=== PATIENT | male | born 1985 | race Caucasian/White ===

== ENCOUNTER 2020-02-03 22:23 | Emergency (ER) | payer OTHER, SELFPAY ==
--- NOTE | ~2020-02-03 | CT_ITS ---
EXAMINATION: CT abdomen pelvis wo con EXAM DATE: 02/03/2020 23:27 INDICATION: Left flank pain with nausea and vomiting. TECHNIQUE: Spiral CT of the abdomen and pelvis was performed without contrast. Axial, coronal and sag ittal images were reviewed. The dose-length product (DLP) for this examination was 652.20 mGy-cm. T he exposure was tailored according to patient size (auto mA exposure control), and iterative reconstr uction (ASIR) was used as additional dose reduction technique. There is no prior study for compariso n. FINDINGS: There is a 4 mm stone in the distal aspect of the left ureter, 2 cm from the ureterovesicul ar junction, with mild perinephric and periureteral fat stranding, mild hydroureteronephrosis. No oth er genitourinary calcifications. Small bilateral inguinal fat-containing hernias. The prostate is un remarkable. There is an exophytic left renal lesion measuring 2.5 cm, consistent with cysts. Tiny umb ilical fat-containing hernia. The bladder is unremarkable. The liver, spleen, adrenal glands and pa ncreas are unremarkable. Gallbladder is unremarkable. No biliary obstruction. There is no retroper itoneal or pelvic lymphadenopathy. The appendix is normal. The stomach and small bowel are unremarkable. There is expected amount of c olonic stool. No free intraperitoneal gas. The heart is normal in size. There are no pericardial or pleural effusions. The lung bases are unremarkable. The bones are unremarkable. IMPRESSION: 1. Left distal ureteral 4 mm stone, mild obstructive nephropathy. 2. Small fat-containing hernias. Reviewed, dictated and finalized at location G.
--- NOTE | ~2020-02-03 | XR_ITS ---
EXAMINATION: XR abdomen/kub 1V EXAM DATE: 02/03/2020 23:22 INDICATION: Left distal ureteral stone. TECHNIQUE: Frontal projection of the upper abdomen, frontal projection lower abdomen/pelvis for inter pretation. There is no prior study for comparison. FINDINGS: The left distal ureteral 4 mm stone is identified, indicated. No other suspicious calcifica tions. There is also a linear 8 x 20 mm calcific density projecting over the sacrum, which is a calci fication in the patent urachus. Nonobstructive bowel gas pattern. There are no osseous abnormalities identified. There is no organomegaly. IMPRESSION: Left distal ureteral 4 mm stone identified. Reviewed, dictated and finalized at location G.
[2020-02-03 22:28] VITALS: BP 147/91; PULSE 86; RESP 16; TEMP 36.4; O2SAT 100
--- NOTE | 2020-02-03 23:00 | ED.BACK ---
HPI - Back Pain/Injury General Chief Complaint: Abdominal Pain Stated Complaint: flank pain Time Seen by Provider: 02/03/20 22:30 Source: patient Mode of arrival: ambulatory Limitations: no limitations History of Present Illness HPI Narrative: This patient is a 34 year old male who presents for evaluation of left lower back pain. He has been having intermittent pain since last weekend. He has been taking aleve for his pain and his last dose was yesterday. Today he states his pain was so severe that he had an episode of nausea and vomiting. He states when he has severe pain , his pain radiates to left lower abdomen. He denies fever or chills. He reports his urine was pink tinged . This pain feels similar to his kidney stone from 2 months ago. Related Data Allergies Allergy/AdvReac Type Severity Reaction Status Date / Time No Known Allergies Allergy Unverified 10/22/18 04:26 Review of Systems Review of Systems: All systems reviewed & are unremarkable except as noted in HPI and below PMFSH Past Medical History Medical History (Updated 02/04/20 @ 00:17 by Mila Berg MD) Kidney stone Family History Family History (Updated 07/17/16 @ 15:19 by DOCTOR UNKNOWN) Mother Family history of type 2 diabetes mellitus Hypertension Grandparent Diabetes mellitus Hypertension Family history of cardiovascular disease Social History Social History (Updated 02/03/20 @ 23:03 by Mila Berg MD) Smoking packs per day: 0.5 Smoking cigarettes per day: 10.0 Smoking status: Current every day smoker Alcohol intake: current Gender identity (if verbalized by the patient): Male Exam Const: General: no acute distress and alert Orientation/consciousness: patient oriented x3 Eyes: EOM: EOMs intact bilaterally Resp: Effort & Inspection: normal respiratory effort and no retractions Auscultation: clear to auscultation bilaterally GI: GI Palp: Yes Soft to palpation, No Tenderness to palpation present (GI), No Guarding due to palpation present (GI), No Rigid due to palpation and No Hernia present : General: Yes no CVA tenderness Back/Spine/Pelvis: Back: no CVA tenderness Skin: General skin exam: normal color Rashes: no rashes Neuro: General: patient oriented x3 and moves all extremities Course Reevaluation(s) Reevaluation #1: I Discussed with patient CT results and discharge plan. He states his pain is better. Date: 02/04/20 Time: 00:12 Vital Signs Vital signs: Vital Signs Temperature 97.6 F 02/03/20 22:28 Pulse Rate 86 02/03/20 22:28 Respiratory Rate 16 02/03/20 22:28 Blood Pressure 147/91 H 02/03/20 22:28 Pulse Oximetry 100 02/03/20 22:28 Temperature 98.2 F 02/04/20 01:08 Pulse Rate 78 02/04/20 01:08 Respiratory Rate 16 02/04/20 01:08 Blood Pressure 132/82 02/04/20 01:08 Pulse Oximetry 98 02/04/20 01:08 MDM - Back Pain/Injury Lab Data Attestation: I reviewed the patient's lab results. Result diagrams: 02/03/20 23:37 02/03/20 23:37 Labs: Lab Results 02/03/20 02/03/20 02/03/20 Range/Units 23:37 23:37 23:37 WBC 7.9 (4.5-10.0) K/mm3 RBC 4.35 L (4.6-6.20) M/mm3 Hgb 14.1 (14.0-18.0) g/dL Hct 41.0 L (42.0-52.0) % MCV 94.3 (80-100) fl MCH 32.4 (26-34) pg MCHC 34.4 (32-36) g/dl RDW 12.9 (11.5-14.5) % Plt Count 211 (150-375) k/mm3 MPV 10.5 H (7.4-10.4) fl Immature Gran % (Auto) 0.1 (0-0.5) % Neut % (Auto) 48.7 (45.5-73.1) % Lymph % (Auto) 40.3 (18.3-44.2) % Geary % (Auto) 7.8 (2.6-8.5) % Eos % (Auto) 2.3 (0-4.4) % Baso % (Auto) 0.8 (0.2-1.2) % Lymph # (Auto) 3.18 (0.9-3.2) K/mm3 Geary # (Auto) 0.6 (0.1-0.6) K/mm3 Eos # (Auto) 0.2 (0-0.3) K/mm3 Baso # (Auto) 0.1 (0.0-0.1) K/mm3 Abs Immat Gran (auto) 0.01 (0.00-0.031) K/mm3 Absolute Neuts (auto) 3.9 (1.3-6.7) K/mm3 Absolute Nucleated RBC 0.0 (0
[2020-02-03] MEDS: LACTATED RINGERS 1,000 ML 999 ML IV CONT (23:17)
[2020-02-03] MEDS: ONDANSETRON INJ 4 MG/2 ML VIAL IV PUSH (23:17)
[2020-02-03] MEDS: TAMSULOSIN HCL 0.4 MG CAPSULE PO (23:41)
[2020-02-03 23:47] LABS: Basophils Absolute Auto 0.1 K/mm3 (0.0-0.1); Basophils Percent Auto 0.8 % (0.2-1.2); Eosinophils Absolute Auto 0.2 K/mm3 (0-0.3); Eosinophils Percent Auto 2.3 % (0-4.4); Hemoglobin 14.1 g/dL (14.0-18.0); Immature Granulocyte Absolute 0.01 K/mm3 (0.00-0.031); Immature Granulocyte Percent A 0.1 % (0-0.5); Lymphocytes Absolute Auto 3.18 K/mm3 (0.9-3.2); Lymphocytes Percent Auto 40.3 % (18.3-44.2); Mean Corpuscular HGB Conc 34.4 g/dl (32-36); Mean Corpuscular Hemoglobin 32.4 pg (26-34); Mean Corpuscular Volume 94.3 fl (80-100); Mean Platelet Volume 10.5 fl (7.4-10.4); Monocytes Absolute Auto 0.6 K/mm3 (0.1-0.6); Monocytes Percent Auto 7.8 % (2.6-8.5); Neutrophils Absolute Auto 3.9 K/mm3 (1.3-6.7); Neutrophils Percent Auto 48.7 % (45.5-73.1); Platelet Count Result 211 k/mm3 (150-375); Red Blood Count 4.35 M/mm3 (4.6-6.20); Red Cell Distribution Width 12.9 % (11.5-14.5); White Blood Count 7.9 K/mm3 (4.5-10.0)
[2020-02-03 23:54] LABS: Add Urine Microscopic? YES; Appearance Urine Clear (Clear); Bilirubin Urine Negative (Negative); Blood Urine 2+ (Negative); Color Urine Yellow (Yellow); Glucose Urine UA Negative (Negative); Ketones Urine Negative (Negative); Leukocyte Esterase Ur Negative LEU/UL (Negative); Mucus Urine Few /lpf; Nitrate Urine Negative (Negative); Protein Urine Negative (Negative); RBC Urine 21-50 /hpf (0-2); Specific Grav Ur 1.019 (1.001-1.035); Squamous Epithelial Cell Urine Few /hpf (Few); Urobilinogen Urine Negative mg/dL (<2.0)
[2020-02-03 23:56] LABS: Alanine Aminotransferase 31 U/L (4-50); Alkaline Phosphatase 76 U/L (38-126); Anion Gap 8 mmol/L (8-16); Aspartate Amino Transferase 31 U/L (17-59); Bilirubin,Total 0.5 mg/dL (0.2-1.3); Blood Urea Nitrogen 17 mg/dL (9-20); Calcium 9.6 mg/dL (8.4-10.2); Carbon Dioxide 26 mmol/L (22-30); Chloride 103 mmol/L (98-107); Estimated Glomerular Filt Rate > 60; Glucose 94 mg/dL (75-110); Lipase 47 U/L (23-300); Potassium 3.8 mmol/L (3.4-5.0); Sodium 137 mmol/L (137-145)
[2020-02-04 01:07] VITALS: BP 136/85; PULSE 78; RESP 18; TEMP 36.8; O2SAT 98
[2020-02-04 01:08] VITALS: BP 132/82; PULSE 78; RESP 16; TEMP 36.8; O2SAT 98
[2020-02-04] MEDS: KETOROLAC 30 MG/ML VIAL (*BKC) IV PUSH (01:10)
== END 2020-02-04 01:09 | disposition home or self-care (01) ==
PROVIDERS: Emergency Provider General Practice
DX: N13.8 Other obstructive and reflux uropathy (principal); N20.1 Calculus of ureter; Z87.442 Personal history of urinary calculi; F17.210 Nicotine dependence, cigarettes, uncomplicated; K40.90 Unilateral inguinal hernia, without obstruction or gangrene, not specified as recurrent
CPT/HCPCS: 36415; 74018; 74176; 80053; 81001; 83690; 85025; 87086; 96361; 96365; 96374; 96375; 99284; A9270; J0131; J1885; J2405; J7120

== ENCOUNTER 2020-10-03 03:01 | Emergency (ER) | payer OTHER, SELFPAY ==
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
[2020-10-03 03:07] VITALS: BP 152/92; PULSE 84; RESP 24; TEMP 36.6
--- NOTE | 2020-10-03 03:19 | PC.NURSE ---
EDMD presented to bedside.
--- NOTE | 2020-10-03 03:24 | PC.NURSE ---
Pt to radiology via cart.
--- NOTE | 2020-10-03 03:34 | PC.NURSE ---
Pt returned from radiology.
[2020-10-03] MEDS: KETOROLAC 30 MG/ML VIAL (*BKC) 60 MG IM (03:45)
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
[2020-10-03 04:13] VITALS: BP 142/77; PULSE 69; RESP 19; TEMP 36.5; O2SAT 97
--- NOTE | 2020-10-03 04:13 | PC.NURSE ---
EDMD presented to bedside to update pt on poc. All questions and concerns addressed.
--- NOTE | 2020-10-03 04:21 | PC.NURSE ---
Pt states pain remains a 7/10 but is able to ambulate without difficulty.
[2020-10-03 04:22] VITALS: BP 142/77; PULSE 69; RESP 19; TEMP 36.5; O2SAT 97
== END 2020-10-03 04:24 | disposition home or self-care (01) ==
PROVIDERS: Emergency Provider Emergency Medicine
DX: S20.211A Contusion of right front wall of thorax, initial encounter (principal); R07.89 Other chest pain; Z87.442 Personal history of urinary calculi; F17.210 Nicotine dependence, cigarettes, uncomplicated; V18.4XXA Pedal cycle driver injured in noncollision transport accident in traffic accident, initial encounter; Y93.55 Activity, bike riding
CPT/HCPCS: 71046; 71100; 96372; 99283; J1885

== ENCOUNTER 2020-11-27 03:38 | Emergency (ER) | payer OTHER, SELFPAY ==
--- NOTE | ~2020-11-27 | CT_ITS ---
EXAMINATION: CT orbit BI w con DATE: 11/27/2020 05:07 INDICATION: Right eye pain with swelling and drainage. Possible foreign body. TECHNIQUE: Computed tomography (CT) of the orbits was performed with 75 cc Omnipaque 350 intravenous contrast. The dose-length product was 183.33 mGy-cm. Automated exposure control and iterative reconst ruction technique were employed. COMPARISON: None FINDINGS: No radiopaque foreign bodies are identified. Orbits are symmetric. No post septal abnormali ties. No abnormal fluid collections or abscess. There are mucous retention cysts of the maxillary sin uses with mucosal thickening of the left maxillary and ethmoid sinuses. Mastoids are pneumatized. No abnormality of the visualized intracranial content. IMPRESSION: 1. No significant abnormality of the orbits. No foreign bodies, masses, fluid collections or abnormal enhancement. Reviewed, dictated and finalized at location A. IMPRESSION: 1. No significant abnormality of the orbits. No foreign bodies, masses, fluid c ollections or abnormal enhancement.
[2020-11-27 03:43] VITALS: BP 141/84; PULSE 95; RESP 18; TEMP 36.6; O2SAT 100
--- NOTE | 2020-11-27 04:25 | ED.EYEPROB ---
HPI - Eye Problem General Chief complaint: Eye Problems <Aristeo Coombs MD - Last Filed: 11/27/20 06:38> Stated complaint: R eye injury <Aristeo Coombs MD - Last Filed: 11/27/20 06:38> Time Seen by Provider: 11/27/20 04:01 <Aristeo Coombs MD - Last Filed: 11/27/20 06:38> History of Present Illness HPI Narrative: Right eye pain since yesterday. He believes that he got a piece of grass in his eye yesterday while mowing a lawn. He had minor pain at that time. He attempted to remove the grass from his eye, but never feel like he got it out. Over night the pain became worse. He has developed swelling around the eye, pain with eye movement, purulent drainage. No fever <Aristeo Coombs MD - Last Filed: 11/27/20 06:38> Related Data Allergies/adverse reactions: Allergies Allergy/AdvReac Type Severity Reaction Status Date / Time No Known Allergies Allergy Verified 11/27/20 04:00 <Aristeo Coombs MD - Last Filed: 11/27/20 06:38> Review of Systems Review of Systems: All systems reviewed & are unremarkable except as noted in HPI and below <Aristeo Coombs MD - Last Filed: 11/27/20 06:38> [facility] Past Medical History Medical History: Medical History Kidney stone <Aristeo Coombs MD - Last Filed: 11/27/20 06:38> Family History Family History: Family History Mother Family history of type 2 diabetes mellitus Hypertension Grandparent Diabetes mellitus Hypertension Family history of cardiovascular disease <Aristeo Coombs MD - Last Filed: 11/27/20 06:38> Social History Social History: Social History Smoking packs per day: 0.5 Smoking cigarettes per day: 10.0 Smoking status: Current every day smoker Alcohol intake: current Gender identity (if verbalized by the patient): Male <Aristeo Coombs MD - Last Filed: 11/27/20 06:38> Exam Const: General: no acute distress and alert <Aristeo Coombs MD - Last Filed: 11/27/20 06:38> Orientation/consciousness: patient oriented x3 <Aristeo Coombs MD - Last Filed: 11/27/20 06:38> Eyes: Visual Sow: normal visual sow by confrontation <Aristeo Coombs MD - Last Filed: 11/27/20 06:38> Alignment and Position: alignment normal <Aristeo Coombs MD - Last Filed: 11/27/20 06:38> Periorbital: periorbital findings abnormal right periorbital swelling and periorbital tenderness; no erythema <Aristeo Coombs MD - Last Filed: 11/27/20 06:38> Conjunctivae: conjunctival abnormality right conjunctival injection diffuse <Aristeo Coombs MD - Last Filed: 11/27/20 06:38> Sclera: sclerae normal <Aristeo Coombs MD - Last Filed: 11/27/20 06:38> Cornea: corneas normal and fluorescein used (no uptake) <Aristeo Coombs MD - Last Filed: 11/27/20 06:38> Pupils: Equal, round and reactive pupils present <Aristeo Coombs MD - Last Filed: 11/27/20 06:38> Other: Pain with eye movement. <Aristeo Coombs MD - Last Filed: 11/27/20 06:38> Resp: Effort & Inspection: normal respiratory effort <Aristeo Coombs MD - Last Filed: 11/27/20 06:38> Auscultation: clear to auscultation bilaterally <Aristeo Coombs MD - Last Filed: 11/27/20 06:38> Cardio: Rate: regular rate <Aristeo Coombs MD - Last Filed: 11/27/20 06:38> Rhythm: regular rhythm <Aristeo Coombs MD - Last Filed: 11/27/20 06:38> Skin: General skin exam: normal color <Aristeo Coombs MD - Last Filed: 11/27/20 06:38> Neuro: General: patient oriented x3, moves all extremities and CN's II-XI intact bilaterally <Aristeo Coombs MD - Last Filed: 11/27/20 06:38> Speech: normal speech <Aristeo Coombs MD - Last Filed: 11/27/20 06:38> Extrem: General: normal to inspection <Aristeo Coombs MD - Last Filed: 11/27/20 06
[2020-11-27 04:44] LABS: Basophils Percent Auto 0.5 % (0.2-1.2); Eosinophils Absolute Auto 0.3 K/mm3 (0-0.3); Eosinophils Percent Auto 3.3 % (0-4.4); Hematocrit 40.9 % (42.0-52.0); Hemoglobin 13.3 g/dL (14.0-18.0); Immature Granulocyte Absolute 0.01 K/mm3 (0.00-0.031); Immature Granulocyte Percent A 0.1 % (0-0.5); Lymphocytes Absolute Auto 3.41 K/mm3 (0.9-3.2); Lymphocytes Percent Auto 42.9 % (18.3-44.2); Mean Corpuscular HGB Conc 32.5 g/dl (32-36); Mean Corpuscular Hemoglobin 30.9 pg (26-34); Mean Corpuscular Volume 95.1 fl (80-100); Monocytes Absolute Auto 0.6 K/mm3 (0.1-0.6); Monocytes Percent Auto 6.9 % (2.6-8.5); Neutrophils Absolute Auto 3.7 K/mm3 (1.3-6.7); Neutrophils Percent Auto 46.3 % (45.5-73.1); Platelet Count Result 191 k/mm3 (150-375); Red Cell Distribution Width 13.2 % (11.5-14.5); White Blood Count 7.9 K/mm3 (4.5-10.0)
[2020-11-27 04:56] LABS: Anion Gap 5 mmol/L (8-16); Blood Urea Nitrogen 11 mg/dL (9-20); Calcium 9.7 mg/dL (8.4-10.2); Carbon Dioxide 28 mmol/L (22-30); Chloride 106 mmol/L (98-107); Estimated CRCL calculation 113 ml/min; Estimated Glomerular Filt Rate > 60; Glucose 131 mg/dL (65-110); Potassium 3.9 mmol/L (3.4-5.0); Sodium 139 mmol/L (137-145)
[2020-11-27] MEDS: FLUORESCEIN SOD 1 MG/STRIP (05:09)
[2020-11-27] MEDS: TETRACAINE HCL 0.5% OPHTH SOLN 4 ML BTL 1 DROP (05:09)
[2020-11-27] MEDS: ERYTHROMYCIN OPHTH OINTMENT 1 GM TUBE 1 APPLIC RIGHT EYE (05:34)
[2020-11-27] MEDS: CLINDAMYCIN HCL 150 MG CAP 300 MG PO (05:34)
[2020-11-27] MEDS: KETOROLAC 30 MG/ML VIAL (*BKC) IV PUSH (06:21)
[2020-11-27 06:32] VITALS: BP 131/84; PULSE 62; RESP 18; TEMP 36.1; O2SAT 98
[2020-11-27 07:05] VITALS: TEMP 36.1
[2020-11-27 09:19] VITALS: BP 140/85; PULSE 64; RESP 16; O2SAT 100
== END 2020-11-27 09:41 | disposition home or self-care (01) ==
PROVIDERS: Emergency Provider Emergency Medicine
DX: H10.9 Unspecified conjunctivitis (principal)
CPT/HCPCS: 36415; 70481; 80048; 85025; 96374; 99284; A9270; J1885; Q9967

== ENCOUNTER 2021-03-25 02:42 | Emergency (ER) | payer OTHER, SELFPAY ==
--- NOTE | ~2021-03-25 | XR_ITS ---
EXAMINATION: XR foot LT min 3V DATE: 03/25/2021 07:09 INDICATION: Left foot pain. Stepped on a nail. TECHNIQUE: Dorsoplantar, two oblique and lateral views of the left foot were obtained. COMPARISON: None. FINDINGS: Shortening of the medial side of the left fourth middle phalanx resulting in mild varus angulation at the distal interphalangeal joint. This likely either an omental or sequela of chronic trauma. Left f oot alignment is otherwise normal. No acute fracture. 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 Sma ll plantar calcaneal spur. Plantar soft tissue swelling in the region of the distal metatarsals. No e vident soft tissue gas or radiopaque foreign bodies. IMPRESSION: 1. No acute osseous abnormality or radiopaque foreign body. Reviewed, dictated and finalized at location A. NET ARCHITECT
[2021-03-25 02:45] VITALS: BP 148/84; PULSE 87; RESP 20; TEMP 36.9; O2SAT 99
[2021-03-25] MEDS: TETANUS,DIPHTHERIA,AC PERTUSSIS ADULT (0.5 ML) BOOSTRIX IM (05:42)
[2021-03-25 05:46] VITALS: BP 133/63; PULSE 60; RESP 16; O2SAT 100
--- NOTE | 2021-03-25 06:55 | ED.WOUNDLAC ---
HPI - Wound/Laceration General Chief Complaint: Wound/Laceration Stated Complaint: puncture wound to left foot Time Seen by Provider: 03/25/21 04:31 Source: patient History of Present Illness HPI narrative: Patient was helping his friend with construction on his home when he stepped on a nail. Ports the nail went through his boot and into his foot. He was concerned about his tetanus status so he came to the ER for evaluation. Reports pain on the bottom of his left foot with walking around. Pain is achy, constant, no radiation. Related Data Allergies Allergy/AdvReac Type Severity Reaction Status Date / Time No Known Allergies Allergy Verified 03/25/21 04:03 Review of Systems Review of Systems: CONSTITUTIONAL: Denies fever, chills, or sweats. EYES: Denies visual changes, redness, or discharge. ENT: Denies rhinorrhea, congestion, sore throat, or otalgia. CARDIOVASCULAR: Denies chest pain, palpitations, or edema. RESPIRATORY: Denies cough or dyspnea. GASTROINTESTINAL: Denies abdominal pain, nausea, vomiting, or diarrhea. GENITOURINARY: Denies dysuria or hematuria. SKIN: Denies rash or itching. MUSCULOSKELETAL: Denies back pain, joint pain, or myalgia. NEUROLOGIC: Denies headache, numbness, dizziness, or weakness. PSYCHIATRIC: Denies anxiety or depression. All systems reviewed & are unremarkable except as noted in HPI and below PMFSH Past Medical History Medical History Kidney stone Family History Family History Mother Family history of type 2 diabetes mellitus Hypertension Grandparent Diabetes mellitus Hypertension Family history of cardiovascular disease Social History Social History Smoking packs per day: 0.5 Smoking cigarettes per day: 10.0 Smoking status: Current every day smoker Alcohol intake: current Gender identity (if verbalized by the patient): Male Exam Narrative: GENERAL: Well-appearing, well-nourished, and in no acute distress. HEAD: Normocephalic, atraumatic. EYES: PERRLA and EOMI. ENT: Nares clear, no rhinorrhea or epistaxis. Mucous membranes moist. NECK: Supple. No masses. No JVD EXTREMITIES: Normal range of motion. Puncture wound with surrounding erythema on the medial plantar aspect of the left foot SKIN: Warm, dry, no rash. NEURO: No focal deficits. Alert and oriented x3. PSYCH: Normal mood and affect. Course Reevaluation(s) Reevaluation #1: Patient resting comfortably results and plan reviewed with patient. Patient comfortable with outpatient plan. Date: 03/25/21 Time: 06:56 Vital Signs Vital signs: Vital Signs Temperature 36.9 C 03/25/21 02:45 Pulse Rate 87 03/25/21 02:45 Respiratory Rate 20 03/25/21 02:45 Blood Pressure 148/84 H 03/25/21 02:45 Pulse Oximetry 99 03/25/21 02:45 Temperature 36.9 C 03/25/21 02:45 Pulse Rate 60 03/25/21 05:46 Respiratory Rate 16 03/25/21 05:46 Blood Pressure 133/63 03/25/21 05:46 Pulse Oximetry 100 03/25/21 05:46 MDM - Wound/Laceration MDM Narrative Medical decision making narrative: H&P as above, vss, pt looks clinically well, exam with puncture wound on the plantar surface of the foot, imaging without fracture or retained foreign body, additional labs/img considered, symptomatic relief available as needed, patient's tetanus was updated on reevaluation pt continues to looks clinically well. Suspect isolated puncture wound, dns fracture, retained foreign body, abscess. plan to tx/monitor as op w/ pcm f/u findings/plan discussed with pt, pt agree/comfortable with plan, return precautions given Imaging Data My impression: Radiology was initially unable to load imaging up to PACS. I walked over to radiology to view imaging on their equipment and there was no acute process or retained foreign body Discharge Plan Discharge Clinical Impression
== END 2021-03-25 07:54 | disposition home or self-care (01) ==
PROVIDERS: Emergency Provider Emergency Medicine
DX: S91.332A Puncture wound without foreign body, left foot, initial encounter (principal); Z23 Encounter for immunization; Z87.442 Personal history of urinary calculi; F17.210 Nicotine dependence, cigarettes, uncomplicated; W45.0XXA Nail entering through skin, initial encounter
CPT/HCPCS: 73630; 90471; 90715; 99283

== ENCOUNTER 2024-10-26 08:53 | Emergency (ER) | payer OTHER, SELFPAY ==
--- NOTE | ~2024-10-26 | XR_ITS ---
EXAM/PROCEDURE: XR chest 2V - 10/26/2024 10:50 CDT HISTORY: 39 years old Male with CP AND LT SIDE PAIN FOR 4 DAYS TECHNIQUE: Two view(s) of the chest. COMPARISON: None available. FINDINGS: LUNGS/ PLEURA: No focal consolidation. No appreciable pneumothorax or large pleural effusion. HEART/ MEDIASTINUM: Heart appears normal in size. BONES: No acute osseous abnormality. OTHER: Visualized upper abdomen is unremarkable. Mild elevation of right hemidiaphragm. IMPRESSION: No acute process. Reviewed, dictated and finalized at location A. IMPRESSION: No acute process.
--- NOTE | ~2024-10-26 | CT_ITS ---
I EXAMINATION: CTA chest PE abdomen pel DATE: 10/26/2024 10:50 CDT INDICATION: Chest pain, shortness of breath and epigastric pain TECHNIQUE: Computed tomographic angiography (CTA) of the chest was performed, along with multiple con tiguous axial images of the abdomen and pelvis with 100 mL Omnipaque-350 intravenous contrast. The do se-length product was 2586.56 mGy-cm. Maximum intensity projection 3D-reconstructions of the aorta an d other arteries were constructed by the technologist on a separate workstation. COMPARISON: 02/03/2020 FINDINGS/OBSERVATIONS: PULMONARY ARTERIES: No filling defect is identified within the main or proximal pulmonary artery. The main pulmonary artery is not enlarged. THORACIC AORTA: No aneurysmal dilatation or dissection is present. The great vessels are intact LUNGS: The lungs are clear. MEDIASTINUM: No morphologically suspicious or pathologically enlarged lymph nodes are identified with in the mediastinum or bilateral axilla. Scattered nonpathologically enlarged lymph nodes within the l eft axilla, a nonspecific finding. BONES OF THE CHEST: No acute fracture. No significant degenerative disease. No lytic or blastic lesions. HEART: The heart is within the upper limits of normal for size, without pericardial effusion. LIVER: The liver enhances homogeneously, and is borderline enlarged measuring 19 cm in short axis dimension. GALLBLADDER AND BILIARY SYSTEM: The gallbladder is only minimally distended, and otherwise unremarkable. PANCREAS: The pancreas enhances homogeneously without ductal dilatation. SPLEEN: The spleen enhances homogeneously and is not enlarged. KIDNEYS: Fluid attenuation focus within the interpolar region of the left kidney, unchanged from 2020 . The bilateral kidneys enhance symmetrically without hydronephrosis or renal calculi. ADRENAL GLANDS: Unremarkable. GASTROINTESTINAL TRACT: Colonic diverticulosis without surrounding inflammatory change. APPENDIX: The appendix is not definitively visualized. However, no pericecal inflammatory change is identified suggest the presence of acute appendicitis. VASCULATURE: Unremarkable. No aneurysmal dilatation or significant stenosis. LYMPH NODES: No pathologically enlarged or morphologically suspicious lymph nodes within the retroperitoneum or at the root of the mesentery. PELVIC STRUCTURES: The bladder is decompressed, limiting its evaluation. Redemonstration of a patent urachus with a 23 mm ureteral stone (increased from 20 mm on previous exa mination in 2020) for which urologic consultation is recommended. The prostate gland is not enlarged. BODY WALL AND MUSCULOSKELETAL: Small fat-containing umbilical hernia. No significant degenerative disease within the lower thoracic or lumbosacral spine. IMPRESSION: No obstructive uropathy. Stable simple cyst within the left kidney. Redemonstration of a patent urachus with a 23 mm ureteral stone (increased from 20 mm on previous exa mination in 2019) for which urologic consultation is recommended. Reviewed, dictated and finalized at location A. IMPRESSION: No obstructive uropathy. Stable simple cyst within the left kidney. Redemonstration of a patent urachus with a 23 mm ureteral stone (increased from 20 mm on previous examination in 2019) for which urologic consultation is claudia mmended.
[2024-10-26 08:58] VITALS: BP 170/106; PULSE 65; RESP 20; TEMP 36.6; O2SAT 100
--- OUTSIDE RECORDS SUMMARY | 2024-10-26 09:05 | XMS_ITS | Clinical Summary ---
Author Organization [facility] Address [address] [facility] [address] [facility] [place] [address] Care Team Providers Care Avionics Systems Engineer Name Role Phone Unavailable Primary Care Provider Unavailabl e Source Comments [facility],non-owned Affiliates and Associated Physician Practices is amultiple site organization consisting of ambulatory clinics and hospital sitesin [place], [place], [place] and [place]. This disclosure is being madepursuant to the Care Everywhere program and may not contain all information available regarding this patient. Last updated 18.[facility] [employer] Social History Tobacco Use Types Packs/Day Years Used Date Smoking Tobacco: Never Assessed Sex and Gender Information Value Date Recorded Sex Assigned at Not on file Legal Sex Male 7:23 AM CDT Gender Identity Not on file Sexual Orientation Not on file Plan of Treatment Health Maintenance Due Date Last Done Comments LIPID TESTING 1985 HIV SCREENING 1998 HEPATITIS C SCREENING 04/16/2001 DTAP/TDAP/TD VACCINES (1 - Tdap) 2002 HEPATITIS B VACCINE (1 of 3 - 19+ 3-dose series) 2002 COVID-19 VACCINE ( - 2023-2 5 season) 2023 DEPRESSION SCREENING 04/22/2024 INFLUENZA VACCINE (#1) 2024 ZOSTER VACCINE (1 of 2) 2033 HIB VACCINE Aged Out No longer eligi ble based on patient's age to complete this topic HPV VACCINE Aged Out No longer eligi ble based on patient's age to complete this topic MENINGOCOCCAL (Group B) VACC INE SHARED DECISION-MAKING Aged Out No longer eligibl e based on patient's age to complete this topic MENINGOCOCCAL GROUPS A/C/Y/W VACCINE Aged Out No longer eligible b ased on patient's age to complete this topic PNEUMOCOCCAL VACCINE Aged Out No long er eligible based on patient's age to complete this topic Insurance MEDICAID [facility]
--- OUTSIDE RECORDS SUMMARY | 2024-10-26 09:06 | XMS_ITS ---
Author Organization [facility] Address [address] [place] [address] Care Team Providers Care Geophysical Computer Name Role Phone Lebron Prather Primary Care Provider [phone] Sanjay Grijalva [phone] REASON FOR VISIT lab work Social History Sex Assigned At : Social History Observation Description Sex Assigned At Male Encounters Encounter Location Date Provider Diagnosis [facility] [address] [place] [address] 09/04/2023 Sanjay Grijalva Plan Of Treatment No Information Progress Notes * Genoveva ARNDTOB:[birth year] (39 yo M)Acc No.[id number]:09/04/2023 UNLOCKED PROGRESS NOTE Patient: Nickolas DESOUZA Provider: Fifi Grijalva :1985 A ge:38 Y S ex:Male Date:09/04/2023 Address:[address] [place], [place] [id number] Pcp:Lebron Prather Subjective: * Chief Complaints: * 1 . Lab work. * Medical History: Objective: * Vitals: Assessment: Plan: * Treatment: * * Electronic signature of Breann Grijalva MD, [id number] on 10/26/2024 at 09:05 AM CDT Sign off status: Pending * Provider: Fifi Grijalva Date: 09/04/2023 Generated for Printi ng/Faxing/eTransmitting on: 0 10/26/2024 09:05 AM CDT
--- OUTSIDE RECORDS SUMMARY | 2024-10-26 09:06 | XMS_ITS | Clinical Summary ---
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
--- OUTSIDE RECORDS SUMMARY | 2024-10-26 09:06 | XMS_ITS | Referral Summary ---
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
--- OUTSIDE RECORDS SUMMARY | 2024-10-26 09:06 | XMS_ITS | Clinical Summary ---
Author Organization [facility] Address [address] [place] [address] Care Team Providers Care Animal Assisted Therapist Name Role Phone Rob Carson MD Primary Care Provider [phone] Source Comments PLEASE NOTE, if this patient is a minor, it may be UNLAWFUL to discuss sensitive information that is contained in these records (such as FAMILY PLANNING, MENTAL HEALTH or SUBSTANCE ABUSE) with the minor patient's parent or other person without the patient's specific authorization.[facility] Allergies No known active allergies Medications melatonin 10 mg tabIndications: Insomnia, unspecified type Take 5 mg by mouth nightly at bedtime Active nicotine, polacrilex, (NICORETTE) 4 mg gumIndications: Tobacco use Chew briefly to activate, then tuck into cheek. Use 1 piece every 1 to 2 hours as needed for cravings. Don't eat or drink for 15 minutes after. 110 Each 2 10/22/2024 9:16 AM PDT 5 Active bictegrav-emtri cit-tenofov ala (BIKTARVY) 50-200-25 mg tabIndications: HIV infection, unspecified symptom status (CMS & HHS-HCC) Take 1 Tablet by mouth once daily. 30 Tablet 4 10/22/2024 9:16 AM PDT 5 Active meloxicam (MOBIC) 15 mg tabletIndicatio ns:Neck pain Take 1 Tablet by mouth once daily with food. 30 Tablet 1 10/22/2024 9:16 AM PDT 5 Active famotidine (PEPCID) 20 mg tabletIndicatio ns:Gastroesopha geal reflux disease without esophagitis TAKE 1 TABLET BY MOUTH NIGHTLY AT BEDTIME NEEDED FOR HEARTBURN 30 Tablet 2 10/22/2024 9:16 AM PDT 5 Active famotidine (PEPCID) 20 mg tabletIndicatio ns:Gastroesopha geal reflux disease without esophagitis TAKE 1 TABLET BY MOUTH NIGHTLY AT BEDTIME NEEDED FOR HEARTBURN 30 Tablet 09/24/2024 10:27 AM PDT 5 10/20/19 25 Discontinu ed(Reorder (E-Cancel Not Sent)) Active Problems Problem Noted Date Diagnosed Date Neck pain 09/11/2024 Assessment & Plan (09/11/2024 10:21 AM CDT): Patient has history of bulging discs. Encouraged weight loss measures. Check XR. Refer to PT. Increase Meloxicam to 15mg po qday prn. Monitor for now. Insomnia 09/11/2024 Assessment & Plan (09/11/2024 10:22 AM CDT): Refer to Pulmonary for sleep evaluation. Encouraged weight loss measures. Continue Melatonin. Encouraged sleep hygiene measures. History of substance use disorder 05/13/2024 Assessment & Plan (09/11/2024 10:21 AM CDT): Patient advised to remain abstinent from substance use. Assessment & Plan (05/14/2024 10:29 AM POUND ATTENDANT): Patient advised to remain abstinent from substance use. Other hyperlipidemia 02/04/2024 Assessment & Plan (09/11/2024 10:22 AM CDT): Encouraged patient on dietary lifestyle and modification. Continue to monitor and recreational counselor. Assessment & Plan (05/14/2024 10:30 AM POUND ATTENDANT): Encouraged patient on dietary lifestyle and modification. Continue to monitor and recreational counselor. Prediabetes 01/31/2024 Assessment & Plan (09/11/2024 10:21 AM CDT): Encouraged patient on dietary lifestyle and modification. Continue to monitor and recreational counselor. Assessment & Plan (05/14/2024 10:29 AM POUND ATTENDANT): Encouraged patient on dietary lifestyle and modification. Continue to monitor and recreational counselor. Assessment & Plan (01/31/2024 11:00 AM CDT): Encouraged patient on dietary lifestyle and modification. Continue to monitor and recreational counselor. Obesity 01/31/2024 Assessment & Plan (09/11/2024 10:22 AM CDT): Encouraged patient on dietary lifestyle and modification. Continue to monitor and recreational counselor. Assessment & Plan (05/14/2024 10:30 AM POUND ATTENDANT): Encouraged patient on dietary lifestyle and modification. Continue to monitor and recreational counselor. Assessment & Plan (01/31/2024 11:01 AM CDT): Encouraged patient on dietary lifestyle and modification. Continue to monitor and recreational counselor. Gastroesophageal reflux disease without esophagi tis 10/02/2023 Assessment & Plan (09/11/2024 10:21 AM CDT): Stable, controlled. Continue present management. Assessment & Plan (05/14/2024 10:29 AM POUND ATTENDANT): Stable, controlled. Continue present management. Assessment & Plan (01/31/2024 11:00 AM CDT): Stable, controlled. Continue present management. Assessment & Plan (11/07/2023 9:28 AM CDT): Stable, controlled. Continue present management. Assessment & Plan (10/03/2023 9:41 AM CDT): Advised patient to avoid Tums due to interaction with [employer]. Start Pepcid for prn use. Tobacco use 10/02/2023 Assessment & Plan (09/11/2024 10:21 AM CDT): Patient now vaping. Encouraged cessation. Monitor for now. Assessment & Plan (05/14/2024 10:29 AM POUND ATTENDANT): Patient now vaping. Encouraged cessation. Monitor for now. Assessment & Plan (01/31/2024 11:00 AM CDT): Wants to try nicotine gum. Will send prescription for this. Assessment & Plan (11/07/2023 9:29 AM CDT): Patient advised on importance of quitting smoking to avoid certain health conditions like COPD, cancer, and heart disease. Patient encouraged to consider options like Chantix or Zyban as well as nicotine replacement therapy like patches, gum, lozenges, or inhaler. Patient not interested in quitting at this time. Will continue to monitor and recreational counselor. Assessment & Plan (10/03/2023 9:41 AM CDT): Patient advised on importance of quitting smoking to avoid certain health conditions like COPD, cancer, and heart disease. Patient encouraged to consider options like Chantix or Zyban as well as nicotine replacement therapy like patches, gum, lozenges, or inhaler. Patient not interested in quitting at this time. Will continue to monitor and recreational counselor. Need for vaccination 10/02/2023 Assessment & Plan (09/11/2024 10:22 AM CDT): MMR #1 today. Advised patient to get COVID-19 vaccine from outside retail pharmacy. Assessment & Plan (05/14/2024 10:30 AM POUND ATTENDANT): Encouraged vaccination with COVID-19 vaccine at outside retail pharmacy. Assessment & Plan (01/31/2024 11:00 AM CDT): Flushot today. Assessment & Plan (11/07/2023 9:29 AM CDT): Tdap today. Assessment & Plan (10/03/2023 9:41 AM CDT): PCV-20 today. HIV infection ([facility]) 09/04/2023 Assessment & Plan (09/11/2024 10:20 AM CDT): HIV under control. Continue current management. Encouraged 100% compliance. No need for opportunistic infection prophylaxis based on last CD4 count. Safe sex measures encouraged. Immunizations: MMR #1 today. Encouraged patient to get COVID-19 vaccine from outside retail pharmacy. Assessment & Plan (05/14/2024 10:29 AM POUND ATTENDANT): HIV under control. Continue current management. Encouraged 100% compliance. No need for opportunistic infection prophylaxis based on last CD4 count. Safe sex measures encouraged. Immunizations: Encouraged patient to schedule COVID-19 vaccine at outside retail pharmacy. Assessment & Plan (01/31/2024 10:59 AM CDT): HIV under control. Continue current management. Encouraged 100% compliance. No need for opportunistic infection prophylaxis based on last CD4 count. Safe sex measures encouraged. Immunizations: Flushot today. Assessment & Plan (11/07/2023 9:28 AM CDT): Improving HIV VL on last check. Recheck labwork today. Continue current medication. Encouraged 100% compliance. No need for OI prophylaxis based on last labwork. Safe sex measures encouraged. Immunizations: Tdap today. Assessment & Plan (10/23/2023 10:08 AM CDT): HIV viral load low level. Continue current management. Encouraged 100% compliance. No need for opportunistic infection prophylaxis based on last CD4 count. Safe sex measures encouraged. Immunizations: Discuss next visit. Assessment & Plan (10/03/2023 9:40 AM CDT): Recently diagnosed. Currently on Biktarvy and tolerating well. Continue present management. Encouraged 100% compliance. Request initial labs drawn at [facility] [place] 2[facility] in [place], [place]. Check f/u labs today. Wait for labs to see if he needs OI prophylaxis. Safe sex measures encouraged. Immunizations: PCV-20 today. Assessment & Plan (09/04/2023 1:56 PM CDT): Recently diagnosed with drug treatment facility. Patient still at inpatient drug facility until next month. Unable to come to clinic due to being too far away. He states that drug treatment facility should be able to draw initial labs and help him start HIV medications. We discussed this, and I faxed lab orders to treatment facility. I also sent Biktarvy to pharmacy at the treatment facility. Warned him about possible side effects. Encouraged 100% compliance. Wait for labs to see if he needs OI prophylaxis. Safe sex measures encouraged. Immunizations: Defer until next visit. F/u in 1 month. High risk medication use 09/04/2023 Anxiety and depression 09/04/2023 Assessment & Plan (09/11/2024 10:21 AM CDT): Stable, controlled. Continue present management. Assessment & Plan (05/14/2024 10:29 AM POUND ATTENDANT): Resolved. Monitor for now. Assessment & Plan (01/31/2024 11:00 AM CDT): Resolved. Monitor for now. Depression screening:DEPRESSION FU PROVIDED ([facility]): Counseling / education in visit Assessment & Plan (10/03/2023 9:41 AM CDT): Resolved. Monitor for now. Assessment & Plan (09/04/2023 1:56 PM CDT): Being treated for this by provider at drug treatment facility. Cannabis use disorder 01/16/2023 Resolved Problems Problem Noted Date Diagnosed Date Resolved Date Cervical lymphadenopathy 10/23/2023 Assessment & Plan (01/31/2024 10:59 AM CDT): Resolved. Monitor for now. Assessment & Plan (11/07/2023 9:28 AM CDT): Related to dental infection? Improving with antibiotics. F/u with Dental Clinic. Assessment & Plan (10/23/2023 10:08 AM CDT): Related to dental infection? Start Augmentin. Encouraged patient to f/u with Dental Clinic as scheduled. Right thigh pain 10/23/2023 05/13/2024 Assessment & Plan (01/31/2024 10:59 AM CDT): Resolved. Monitor for now. Assessment & Plan (11/07/2023 9:28 AM CDT): Neuropathy? Arthritis? Bursitis? Continue Meloxicam and Gabapentin. Check lab work-up. Monitor closely. Assessment & Plan (10/23/2023 10:09 AM CDT): Neuropathy? Arthritis? Bursitis? Start Meloxicam and Gabapentin. Monitor closely. Advised to call if symptoms persist or worsen. F/u next week as scheduled. Encounters Date Type Department Care Team Description 10/07/2024 9:30 AM CDT Office Visit [address] [phone] Noelle Buchanan [facility] 09/17/2024 10:30 AM CDT Office Visit [address] [phone] Billie Box 09/15/2024 Results Follow-Up [address] [phone] Rob Carson MD 09/11/2024 10:00 AM CDT Office Visit [address] [phone] Rob Carson MD 09/11/2024 Interim Notes [address] [phone] Camille Leone 09/03/2024 Interim Notes [address] [phone] Rory Wise DMD 07/27/2024 10:30 AM CDT Office Visit [address] [phone] Rory Wise DMD from Last 3 Months Immunizations Immunization Administration Dates Next Due Flu, Preservative Free 04/12/2019 INFLUENZA, SEASONAL, INJECTABLE, PRESERVATIVE FR EE 01/31/2024 MMR (MMR II/Priorix) 09/11/2024 PNEUMOCOCCAL CONJUGATE PCV 20 (Prevnar) 10/02/19 24 TDAP 10/31/2023 Social History Tobacco Use Types Packs/Day Years Used Date Smoking Tobacco: Former Cigarettes 0.5 21.1 S tarted: 10/02/2003 Smokeless Tobacco: Never Tobacco Cessation:Counseling Given: Yes Alcohol Use Standard Drinks/Week Comments Never 0 (1 standard drink = 0.6 oz pur e alcohol) Social Connections Answer Date Recorded Connectedness 0 01/10/2024 Financial Resource Strain Answer Date R ecorded Financial Resource Strain 0 2023 Stress Answer Date Recorded Stress 0 09/03/2023 Physical Activity Answer Date Recorded Physical Activity 0 09/03/2023 Food Insecurity Answer Date Recorded Food 0 01/16/2024 Transportation Needs Answer Date Record ed Transportation 0 09/03/2023 Housing Stability Answer Date Recorded Housing 0 09/03/2023 Safety and Environment Answer Date Dread rded Safety 0 09/03/2023 Utilities Answer Date Recorded Utilities 0 09/03/2023 Employment Answer Date Recorded Stress 0 01/10/2024 Sex and Gender Information Value Date Recorded Sex Assigned at Male 09/04/2023 7:27 AM PDT Legal Sex Male 2:14 PM PDT Gender Identity Male 09/04/2023 7:27 AM PDT Sexual Orientation Straight 09/04/2023 7: 27 AM PDT Last Filed Vital Signs Vital Sign Reading Time Taken Comments Blood Pressure 139/85 10/07/2024 9:37 AM CDT Pulse 70 10/07/2024 9:37 AM CDT Temperature 36.3 C (97.3 F) 10/07/2024 9:37 AM CDT Respiratory Rate - - Oxygen Saturation 98% 09/11/2024 9:42 AM CDT Inhaled Oxygen Concentration - - Weight 139.2 kg (306 lb 12.8 oz) 09/11/2024 9:42 AM CDT Height 195.6 cm (6' 5) 09/11/2024 9:42 AM CDT Body Mass Index 36.38 09/11/2024 9:42 AM CDT Plan of Treatment Upcoming Encounters Date Type Department Care Team (Late st Contact Info) Description 11/25/2024 10:00 AM CDT Office Visit [address] [phone] Noelle Buchanan, [facility] [place] [address] 12/11/2024 10:30 AM CDT Office Visit [address] [phone] Rob Carson MD [address] [place] [id number] Health Maintenance Due Date Last Done Comments Imm-Meningococcal (1 - Risk 2-dose series) 1985 Medicare Annual Wellness Visit 2001 Imm-Zoster, Recombinant (1 of 2) 2002 [id number] ( season) 2023 Dental Periodontal Maintenance 09/11/2024 06/12/2024 Imm-MMR (2 of 2 - Risk 2-dose series) 10/09/2024 09/11/2024 Dental BW 11/28/2024 11/27/2023 Dental Examination 11/28/2024 11/27/2023 Depression Monitoring 12/12/2024 09/11/2024 , 05/13/2024, 01/31/2024, Additional history exists Imm-Influenza (#1) 2024 01/31/2024, 04/12/2019 Anxiety Screening 09/11/2025 09/11/2024 Diabetes Screening 09/11/2025 09/11/2024, 0 09/11/2024, 05/13/2024, Additional history exists Tobacco Cessation Counseling (#1) 09/11/2025 Tobacco Screening 09/11/2025 09/11/2024 Hypertension Screening (#1) 10/07/2025 Dental Perio Charting 10/09/2025 10/07/2024, 025 Lipid Screening 01/30/2027 01/31/2024 Dental FMX/Pano 11/28/2028 11/27/2023, 11/27/2023 Imm-DTaP/Tdap/Td (2 - Td or Tdap) 10/30/2033 10/31/2023 Hepatitis B Screening Completed 10/02/2023, 024 Hepatitis C Screening Completed 10/02/2023 Imm-Pneumococcal Completed 10/02/2023 Alcohol and Drug Screen Completed 05/13/2024 Imm-HIB Aged Out No longer eligi ble based on patient's age to complete this topic Imm-Hepatitis A Discontinued Imm-Hepatitis B Discontinued Procedures Procedure Name Priority Date/Time Associated Diagnosis Comments PHASE I TREATMENT COMPLETED Routine 09/17/2024 10:30 AM CDT Partial edentulism, unspecified edentulism class NUTRITIONAL COUNSELING CONTROL OF DENTAL DISEASE Routine 09/17/2024 10:30 AM CDT Encounter for fitting and adjustment of dental prosthetic device Partial edentulism, unspecified edentulism class PARTIAL DENTURE DELIVERY Routine 09/17/2024 10:30 AM CDT Partial edentulism, unspecified edentulism class MEDICAL HISTORY UPDATE Routine 09/17/2024 10:30 AM CDT Encounter for fitting and adjustment of dental prosthetic device ORAL HYGIENE INSTRUCTIONS Routine 09/17/2024 10:30 AM CDT Encounter for fitting and adjustment of dental prosthetic device Partial edentulism, unspecified edentulism class 31,18 MANDIBULAR PARTIAL DENTURE - FLEXIBLE BASE Routine 09/17/2024 10:30 AM CDT Partial edentulism, unspecified edentulism class HEMOGLOBIN GLYCOSYLATED A1C Routine 09/11/2024 10:34 AM CDT HIV infection, unspecified symptom status ([facility]) Prediabetes Obesity, unspecified class, unspecified obesity type, unspecified whether serious comorbidity present High risk medication use RPR (DIAGNOSIS) WITH REFLEX TO TITER AND CONFIRMATORY TESTING Routine 09/11/2024 10:34 AM CDT HIV infection, unspecified symptom status ([facility]) High risk medication use COMPREHENSIVE METABOLIC PANEL Routine 09/11/2024 10:34 AM CDT HIV infection, unspecified symptom status ([facility]) High risk medication use BLOOD COUNT COMPLETE AUTO&AUTO DIFRNTL WBC Routine 09/11/2024 10:34 AM CDT HIV infection, unspecified symptom status ([facility]) High risk medication use LYMPHOCYTE SUBSET PANEL 5 Routine 09/11/2024 10:34 AM CDT HIV infection, unspecified symptom status ([facility]) High risk medication use HIV-1 RNA QUANT REAL TIME PCR, PLASMA Routine 09/11/2024 10:34 AM CDT HIV infection, unspecified symptom status ([facility]) High risk medication use URINALYSIS, MACROSCOPIC Routine 09/11/2024 10:34 AM CDT HIV infection, unspecified symptom status ([facility]) High risk medication use MEDICAL HISTORY UPDATE Routine 07/27/2024 10:30 AM CDT Partial edentulism, unspecified edentulism class ORAL HYGIENE INSTRUCTIONS Routine 07/27/2024 10:30 AM CDT Partial edentulism, unspecified edentulism class IMPRESSIONS Routine 07/27/2024 10:30 AM CDT Partial edentulism, unspecified edentulism class LR COMP PERIODONTAL EVALUATION - NEW/EST PATIENT Routine 06/12/2024 11:30 AM POUND ATTENDANT Stage 3 grade C generalized periodontitis per AAP/EFP 2017 classification LR PERIODONTAL MAINTENANCE Routine 06/12/2024 11:30 AM POUND ATTENDANT Stage 3 grade C generalized periodontitis per AAP/EFP 2017 classification LIPID PANEL Routine 01/31/2024 10:23 AM CDT HIV infection, unspecified symptom status ([facility]) Prediabetes Obesity, unspecified class, unspecified obesity type, unspecified whether serious comorbidity present High risk medication use INTRAORAL - COMP SERIES OF RADIOGRAPHIC IMAGES Routine 11/27/2023 10:30 AM CDT Retained tooth root Fractured dental episcopal with loss of material Fractured dental episcopal without loss of material Caries Encounter for dental examination and cleaning with abnormal findings COMP ORAL EVALUATION - NEW/ESTABLISHED PATIENT Routine 11/27/2023 10:30 AM CDT Caries Encounter for dental examination and cleaning with abnormal findings HEPATITIS B SURFACE AG, EIA WITH REFLEX CONFIRM Routine 10/02/2023 3:10 PM CDT HIV infection, unspecified symptom status ([facility]) High risk medication use HEPATITIS C AB W/RFLX HCV RNA, QT, RT PCR Routine 10/02/2023 3:10 PM CDT HIV infection, unspecified symptom status ([facility]) High risk medication use from Last 3 Months or Most Recently Relevant to Health Maintenance Results * RPR (DIAGNOSIS) WITH REFLEX TO TITER AND CONFIRMATORY TESTING Routine (09/11/2024 10:34 AM CDT) Pathologist [facility] [place] RPR (DX) W/REFL TITER AND CONFIRMATORY TESTING NON-REACT PETE NON-REACT PETE [facility] Comment: No laboratory evidence of syphilis. If recent exposure is suspected, submit a new sample in 2-4 weeks. Serum Blood / Unknown 09/11/2024 1 0:34 AM CDT 09/12/2024 5:52 AM CDT Rob Carson MD LAB - BLOOD DRAW Edited Resu lt - Final [facility] [address] [address] [place], [place] [id number] [place] [address] [facility] [place] [address] [place] [address] * LYMPHOCYTE SUBSET PANEL 5 Routine (09/11/2024 10:34 AM CDT) Pathologist [facility] % CD4 (HELPER CELLS) 37 30 - 61 % [facility] [place] ABSOLUTE CD4+ CELLS 1,266 490 - 1,740 cells/uL [facility] [place] [place] ABSOLUTE LYMPHOCYTES 3,385 850 - 3,900 cells/uL [facility] [place] Blood Blood / Unknown 09/11/2024 1 0:34 AM CDT 09/15/2024 9:37 AM CDT Rob Carson MD LAB - BLOOD DRAW Edited Resu lt - Final [facility] [address] [facility] [place] [address] [facility] [place] [address] [place] [address] * (ABNORMAL) HIV-1 RNA QUANT REAL TIME PCR, PLASMA Routine (09/11/2024 10:34 AM CDT) COPIES/ML 37(H) NOT DETECTED copies/mL [facility] LOG COPIES/ML 1.57(H) NOT DETECTED Log copies/mL [facility] Comment: This test was performed using Real-Time Polymerase Chain Reaction. Reportable Range: 20 copies/mL to 10,000,000 copies/mL (1.30 log copies/mL to 7.00 log copies/mL). Blood Blood / Unknown 09/11/2024 1 0:34 AM CDT 09/12/2024 3:42 AM CDT Rob Carson MD LAB - BLOOD DRAW Edited Resu lt - Final [facility] [place] [address] [place] [address], [facility] [address] [place] [address] * (ABNORMAL) URINALYSIS, MACROSCOPIC Urine Routine (09/11/2024 10:34 AM CDT) COLOR YELLOW YELLOW [facility] APPEARANCE CLEAR CLEAR [facility] SPECIFIC GRAVITY 1.020 1.001 - 1.035 [facility] URINE PH 5.5 5.0 - 8.0 [facility] GLUCOSE NEGATIVE NEGATIVE [facility] BILIRUBIN NEGATIVE NEGATIVE [facility] KETONES NEGATIVE NEGATIVE [facility] OCCULT BLOOD NEGATIVE NEGATIVE [facility] URINE PROTEIN NEGATIVE NEGATIVE [facility] NITRITE NEGATIVE NEGATIVE [facility] LEUKOCYTE ESTERASE TRACE(A) NEGATIVE [facility] Urine Urine specimen / Unknown 09/11/2024 10:34 AM CDT 09/12/2024 4:20 AM CDT us Rob Carson MD LAB URINE AMBULATORY Edited Result - Final [facility] [place] [address] [address], [facility] [address] [address] * BLOOD COUNT COMPLETE AUTO&AUTO DIFRNTL WBC Routine (09/11/2024 10:34 AM CDT) Pathologist [facility] WHITE BLOOD CELL COUNT 6.5 3.8 - 10.8 Thousand/ uL [facility] RED BLOOD CELL COUNT 4.88 4.20 - 5.80 Million/u L [facility] HEMOGLOBIN 15.9 13.2 - 17.1 g/dL [facility] HEMATOCRIT 46.9 38.5 - 50.0 % [facility] MCV 96.1 80.0 - 100.0 fL [facility] MCH 32.6 27.0 - 33.0 pg [facility] MCHC 33.9 32.0 - 36.0 g/dL [facility] Comment: For adults, a slight decrease in the calculated MCHC value (in the range of 30 to 32 g/dL) is most likely not clinically significant; however, it should be interpreted with caution in correlation with other red cell parameters and the patient's clinical condition. RDW 12.8 11.0 - 15.0 % [facility] PLATELET COUNT 228 140 - 400 Thousand/ uL [facility] MPV 10.9 7.5 - 12.5 fL [facility] ABSOLUTE NEUTROPHILS 2,678 1,500 - 7,800 cells/uL [facility] ABSOLUTE LYMPHOCYTES 3,218 850 - 3,900 cells/uL [facility] ABSOLUTE MONOCYTES 423 200 - 950 cells/uL [facility] ABSOLUTE EOSINOPHILS 130 15 - 500 cells/uL [facility] ABSOLUTE BASOPHILS 52 0 - 200 cells/uL [facility] NEUTROPHILS PCT 41.2 % [facility] LYMPHOCYTES 49.5 % [facility] MONOCYTES 6.5 % [facility] EOSINOPHILS 2.0 % [facility] BASOPHILS 0.8 % [facility] ABSOLUTE BAND NEUTROPHILS CANCELED [facility] Comment:Result canceled by sahil rodríguez. ABSOLUTE METAMYELOCYTES CANCELED [facility] Comment:Result canceled by t he ancillary. ABSOLUTE MYELOCYTES CANCELED [facility] Comment:Result canceled by t he ancillary. ABSOLUTE PROMYELOCYTES CANCELED [facility] Comment:Result canceled by t he ancillary. ABSOLUTE BLASTS CANCELED [facility] Comment:Result canceled by t he ancillary. ABSOLUTE NUCLEATED RBC CANCELED [facility] Comment:Result canceled by t he ancillary. BAND NEUTROPHILS CANCELED [facility] Comment:Result canceled by t he ancillary. METAMYELOCYTES CANCELED [facility] Comment:Result canceled by t he ancillary. MYELOCYTES CANCELED [facility] Comment:Result canceled by t he ancillary. PROMYELOCYTES CANCELED [facility] Comment:Result canceled by t he ancillary. REACTIVE LYMPHOCYTES CANCELED [facility] Comment:Result canceled by t he ancillary. BLASTS [facility]ED [facility] Comment:Result canceled by t he ancillary. NUCLEATED RBC [facility]CELED [facility] Comment:Result canceled by t he ancillary. COMMENT(S) [facility]CELED [facility] Comment:Result canceled by t he ancillary. Blood Blood / Unknown 09/11/2024 1 0:34 AM CDT 09/12/2024 4:19 AM CDT Rob Carson MD LAB - BLOOD DRAW Edited Resu lt - Final [facility] [address] [place] [address], [facility] [place] [address] [place] [address] * (ABNORMAL) HEMOGLOBIN GLYCOSYLATED A1C Routine (09/11/2024 10:34 AM CDT) HEMOGLOBIN A1C 5.9(H) <5.7 % [facility] Comment: For someone without known diabetes, a hemoglobin A1c value between 5.7% and 6.4% is consistent with prediabetes and should be confirmed with a follow-up test. For someone with known diabetes, a value <7% indicates that their diabetes is well controlled. A1c targets should be individualized based on duration of diabetes, age, comorbid conditions, and other considerations. This assay result is consistent with an increased risk of diabetes. Currently, no consensus exists regarding use of hemoglobin A1c for diagnosis of diabetes for children. Blood Blood / Unknown 09/11/2024 1 0:34 AM CDT 09/12/2024 4:19 AM CDT us Rob Carson MD LAB - BLOOD DRAW Edited Resu lt - Final [facility] [address] [place] [address], [facility] [address] [place] [address] * (ABNORMAL) COMPREHENSIVE METABOLIC PANEL Routine (09/11/2024 10:34 AM CDT) [facility] GLUCOSE 100(H) 65 - 99 mg/dL [facility] Comment: Fasting reference interval For someone without known diabetes, a glucose value between 100 and 125 mg/dL is consistent with prediabetes and should be confirmed with a follow-up test. [place] NITROGEN (BUN) 12 7 - 25 mg/dL [facility] CREATININE (blood) 1.13 0.60 - 1.29 mg/dL [facility] EGFR 84 > OR = 60 mL/min/1. 73m2 [facility] BUN/CREATININE RATIO SEE NOTE: 6 22 (calc) [facility] Comment: Not Reported: BUN and Creatinine are within reference range. SODIUM 137 135 - 146 mmol/L [facility] POTASSIUM 4.4 3.5 - 5.3 mmol/L [facility] CHLORIDE 102 98 - 110 mmol/L [facility] CARBON DIOXIDE 29 20 - 32 mmol/L [facility] CALCIUM 9.6 8.6 - 10.3 mg/dL [facility] PROTEIN, TOTAL 8.0 6.1 - 8.1 g/dL [facility] ALBUMIN 4.5 3.6 - 5.1 g/dL [facility] GLOBULIN 3.5 1.9 - 3.7 g/dL (calc) [facility] ALBUMIN/GLOBULI N RATIO 1.3 1.0 - 2.5 (calc) [facility] BILIRUBIN, TOTAL 0.4 0.2 - 1.2 mg/dL [facility] ALKALINE PHOSPHATASE 72 36 - 130 U/L [facility] AST 24 10 - 40 U/L [facility] ALT 46 9 - 46 U/L [facility] Blood Blood / Unknown 09/11/2024 1 0:34 AM CDT 09/12/2024 4:23 AM CDT us Rob Carson MD LAB - BLOOD DRAW Edited Resu lt - Final [facility] [address] [place] [address], [facility] [address] [place] [address] * (ABNORMAL) LIPID PANEL (01/31/2024 10:23 AM CDT) Pathologist [facility] CHOLESTEROL, TOTAL 210(H) <200 mg/dL [facility] HDL CHOLESTEROL 38(L) > OR = 40 mg/dL [facility] TRIGLYCERIDES 183(H) <150 mg/dL [facility] LDL-CHOLESTEROL 140(H) mg/dL (calc) [facility] Comment: Reference range: <100 Desirable range <100 mg/dL for primary prevention; <70 mg/dL for patients with CHD or diabetic patients with > or = 2 CHD risk factors. LDL-C is now calculated using the Sruthi calculation, which is a validated novel method providing better accuracy than the Friedewald equation in the estimation of LDL-C. Norris RODGERS et al. PEDRO PABLO. 2013;310(19): 9480-7532 (http://education.Taskdoer.Xceleron (Chapter 11)/faq/MFT246) CHOL/HDLC RATIO 5.5(H) <5.0 (calc) [facility] NON-HDL CHOLESTEROL 172(H) <130 mg/dL (calc) [facility] Comment: For patients with diabetes plus 1 major ASCVD risk factor, treating to a non-HDL-C goal of <100 mg/dL (LDL-C of <70 mg/dL) is considered a therapeutic option. Blood Blood / Unknown 01/31/2024 1 0:23 AM CDT 02/01/2024 5:03 AM CDT Rob Carson MD LAB - BLOOD DRAW Edited Resu lt - Final Performing Organization Address City/[facility] [address]/ZIP Co de Phone Number [facility] [address] [address] [facility] [place] [address], [address] [place] [address] * HEPATITIS C AB W/RFLX HCV RNA, QT, RT PCR (10/02/2023 3:10 PM CDT) [facility] HEPATITIS C ANTIBODY NON-REACT PETE NON-REACT PETE [facility] Comment: HCV antibody was non-reactive. There is no laboratory evidence of HCV infection. In most cases, no further action is required. However, if recent HCV exposure is suspected, a test for HCV RNA (test code 90180) is suggested. For additional information please refer to http://education.CommunityForce/faq/UXA43v7 (This link is being provided for informational/ educational purposes only.) Blood Blood / Unknown 10/02/2023 3 :10 PM CDT 10/03/2023 3:03 AM CDT Rob Carson MD LAB - BLOOD DRAW Edited Resu lt - Final [facility] [address] [place] [address], [place] [address] [place] [place] [address] * HEPATITIS B SURFACE AG, EIA WITH REFLEX CONFIRM (10/02/2023 3:10 PM CDT) HEPATITIS B SURFACE ANTIGEN NON-REACTIVE NON-REACT PETE [facility] COMMENT [facility] CONFIRMATION CANCELED [facility] Comment:Result canceled by sahil snow ancillary. Blood Blood / Unknown 10/02/2023 3 :10 PM CDT 10/03/2023 3:03 AM CDT Narrative [facility] - 10/04/2023 3:56 PM CDT For additional information, please refer to http://education.CommunityForce/faq/TDI025 (This link is being provided for informational/ educational purposes only.) Rob Carson MD LAB - BLOOD DRAW Edited Resu - Final [facility] [address] [place] [address], [facility] [address] [place] [address] from Last 3 Months or Most Recently Relevant to Health Maintenance Insurance [id number] Member Subscriber Plan / Payer (Ef fective 2024-Present) Name:Nickolas Arndt Relation to Subscriber:Self Name:Nickolas Arndt Payer ID:[id number] Group ID:Not on file Type:Medicare Address: [address] [place] [address] [employer] Care Teams Animal Assisted Therapist Relationship Specialty Start Date End Date Rob Carson MD [address] [place] [address] PCP - General Infectious Diseases 10/02/23
--- OUTSIDE RECORDS SUMMARY | 2024-10-26 09:06 | XMS_ITS | Patient Health Record ---
Author Organization [facility] Address [address] [place] [address] Care Team Providers Care Toll Gate Keeper Name Role Phone Lebron Prather Primary Care Provider Allergies No Known Allergies Reason For Referral No Information Medications Medication SIG (Take, Route, Fr equency, Duration) Notes Start Date End Date Status Zoloft 50 MG 1 tablet Orally Once a day; Duration: 30 days Not-Taking Multivitamin - 1 tablet Orally Once a day Active Mirtazapine 7.5 MG 2 tablets at bedtime Orally Once a day; Duration: 30 day(s) 09/13/2023 Active Folic Acid 1 MG 1 tablet Orally Once a day Active Thiamine HCl 100 MG 1 tablet Orally Once a day- given for 3 days while on CRU Active Mirtazapine 15 MG 1 tablet at bedtime Orally Once a day; Duration: 30 days 09/11/2023 Active LORazepam 1 MG 1 tablet at bedtime as needed Orally Once a day Active Social History Tobacco Use: Social History Observation Description Date Details (start date - stop date) Current Smoker NA - NA Sex Assigned At : Social History Observation Description Sex Assigned At Male Dont use, Tobacco Use/Smoking Question Answer Notes Are you a current every day smoker Additional Findings: Tobacco User Moderate cigar ette smoker (10-19 cigs/day) PRAPARE Question Answer Notes Date Completed/Updated: 07/14/2024 What is your current housing situation? I have h ousing Are you worried about losing your housing? No What is the highest level of school that you have finished? High school diploma or GED What is your current work situation? Unemployed and seeking work In the past year, have you o r any family members you live with been unable to get any of the following when it was really needed? Check all that apply I do not have problems meeting my needs Has lack of transportation k ept you from medical appointments, meetings, work or from getting things needed for daily living? Yes, it has kept me from non-medical meetings, appointments, work, or getting things needed for daily living How often do you see or talk to people that you care about and feel close to? (For example: talking to friends on the phone, visiting friends or family, going to anglican or club meetings) More than 5 times a week How stressed are you? Stress is when someone feels tense, nervous, anxious, or can\t sleep at night because their mind is troubled A little bit In the past year have you sp ent more than 2 nights in a row in a prison, mcc, group home center, or juvenile correctional facility? No Do you feel physically and e motionally safe where you currently live? Yes In the past year, have you b een afraid of your partner or ex-partner? 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 confirmed Problem Stimulant use disorder (8204696635) Stimulant use disorder (F15.90) 01/17/20 23 Active confirmed Problem Depression, unspecified (F32.A) 01/17/20 23 Active confirmed Problem Cannabis use disorder (7309546438) Cannabis use disorder (F12.90) 01/17/20 23 Active confirmed Encounters Encounter Location Date Provider Diagnosis [facility] [address] [place] [address] 12/03/2023 Lebron Prather [address] [place] [address] 07/17/2024 Lebron Prather Plan Of Treatment No Information Insurance Providers Payer Name Payer Address Payer Phone Subscriber Number Group Number Insured Name Patient Relationship to Insured Coverage Start Date Coverage End Date [employer] Marketing [facility] [address] [place] [phone] [id number] Nickolas Keita Self - patient is the insured 3 [place] [employer] [facility] [address] [place] [address] [phone] [id number] Nickolas Keita Self - patient is the insured 3 Medical (General) History Medical History History ICD Code Methamphetamine abuse Surgical History Surgery Date(Month/Year) Hospitalization History Reason Date(Month/Year) [facility] 2020
[2024-10-26 09:11] VITALS: PULSE 61; O2SAT 100
--- NOTE | 2024-10-26 09:11 | ECG_ITS ---
Test Date: 2024-10-26 09:03:55 Measurements Intervals [place] Rate: 64 P: 35 MS: 180 QRS: 4 QRSD: 100 T: 18 QT: 398 QTc: 412 Interpretive Statements SINUS RHYTHM No previous ECG available for comparison Electronically Signed On 10-26-2024 22:22:08 CDT by Jory Hannon M.D.
[2024-10-26] MEDS: ASPIRIN 81 MG CHEWABLE TABLET 324 MG PO (09:17)
[2024-10-26 09:23] LABS: Hematocrit 41.9 % (42.0-52.0); Hemoglobin 14.5 g/dL (14.0-18.0); Immature Granulocyte Percent A 0.2 % (0-0.5); Lymphocytes Absolute Auto 2.82 K/mm3 (0.9-3.2); Mean Corpuscular HGB Conc 34.6 g/dl (32-36); Mean Corpuscular Hemoglobin 32.4 pg (26-34); Mean Corpuscular Volume 93.7 fl (80-100); Nucleated Red Blood Cells Absolute Auto 0.000 K/mm3 (0.0-0.012); Nucleated Red Blood Cells Perc 0.0 % (0.0-0.2); Platelet Count Result 180 k/mm3 (150-375); Red Blood Count 4.47 M/mm3 (4.6-6.20); White Blood Count 6.1 K/mm3 (4.5-10.0)
[2024-10-26 09:36] LABS: Alanine Aminotransferase 47 U/L (6-50); Albumin Level 4.0 g/dL (3.5-5.1); Alkaline Phosphatase 63 U/L (38-126); Anion Gap 9 mmol/L (4-12); Aspartate Amino Transferase 31 U/L (17-59); Bilirubin,Total 0.3 mg/dL (0.2-1.3); Blood Urea Nitrogen 16 mg/dL (9-20); Calcium 9.3 mg/dL (8.4-10.2); Carbon Dioxide 23 mmol/L (22-30); Chloride 108 mmol/L (98-107); Estimated CRCL calculation 133 ml/min; Estimated Glomerular Filt Rate > 60; Glucose 127 mg/dL (65-110); Lipase 52 U/L (23-300); Potassium 4.3 mmol/L (3.4-5.0); Sodium 140 mmol/L (137-145); Total Protein 7.9 g/dL (6.3-8.2)
[2024-10-26 09:38] LABS: INR 1.0; Prothrombin Time 13.1 Seconds (11.1-14.7)
[2024-10-26 09:39] LABS: Partial Thromboplastin Time 23.3 Seconds (22.3-36.8)
[2024-10-26 09:48] LABS: Troponin I 0.013 ng/mL (0.000-0.034)
[2024-10-26 10:00] VITALS: BP 153/91; PULSE 62; RESP 16; O2SAT 98
--- OUTSIDE RECORDS SUMMARY | 2024-10-26 10:01 | XMS_ITS | Clinical Summary ---
Author Organization [facility] [address] Address [address] [place] [address] Care Team Providers Care Medical Laboratory Technical Officer Name Role Phone Missy Parra MD Primary Care Provider Social History Tobacco Use Types Packs/Day Years Used Date Smoking Tobacco: Never Assessed Personal Safety Answer Date Recorded Getting School Help Needed Not on file 07/06 Sex and Gender Information Value Date Recorded Sex Assigned at Not on file Legal Sex Male 8:34 PM GARMENT SORTER Gender Identity Male 08/02/2018 7:14 PM CDT Sexual Orientation Not on file Plan of Treatment Not on file Insurance Care Teams Medical Laboratory Technical Officer Relationship Specialty Start Date End Date Missy Parra MD [address] [place] [address] PCP - General Family Medicine 07/16/18
--- OUTSIDE RECORDS SUMMARY | 2024-10-26 10:01 | XMS_ITS | Encounter Summary ---
Author Organization [facility] Address [facility] [place] [address] Care Team Providers Care Mold Chipper Name Role Phone None, Provider Primary Care Provider Sarai Demarco Primary Care Provider [phone] Cecily Robbins PA-C Primary Care Provider [phone] Zoila Martin MD Primary Care Provider [phone] Encounter Details Date Type Department Care Team (Late st Contact Info) Description 04/14/2019 Telephone [facility] Med/Surg [address] [place] [address] Елена Cervantes, JAE Social History Tobacco Use Types Packs/Day Years Used Date Smoking Tobacco: Every Day Cigarettes Smokeless Tobacco: Never Alcohol Use Standard Drinks/Week Comments Yes 0 (1 standard drink = 0.6 oz pur e alcohol) rarly Sex and Gender Information Value Date Recorded Sex Assigned at Not on file Legal Sex Male 6:30 PM FINE GRADER Gender Identity Not on file Sexual Orientation Not on file documented as of this encounter Functional Status * RETIRED Are you deaf or do you have serious difficulty hearing Answer Date of Assessment Author Status Yes 04/12/2019 4:06 PM FINE GRADER Activ e * RETIRED Are you blind or do you have serious difficulty seeing, even when wearing glasses? Answer Date of Assessment Author Status No 04/12/2019 4:06 PM FINE GRADER Activ e * Do you have serious difficulty walking or climbing stairs? Answer Date of Assessment Author Status No 04/07/2019 3:22 AM FINE GRADER Claudia Pete RN Active * Do you have difficulty dressing or bathing? Answer Date of Assessment Author Status No 04/12/2019 4:06 PM FINE GRADER Jacqui Medina RN Active * Because of a physical, mental, or emotional condition, do you have difficulty doing errands alone such as visiting a doctor's office or shopping? Answer Date of Assessment Author Status No 04/12/2019 4:06 PM FINE GRADER Jacqui Medina RN Active documented as of this encounter Mental Status * Because of a physical, mental, or emotional condition, do you have serious difficulty concentrating, remembering, or making decisions? Answer Entry Date Author Status No 04/12/2019 4:06 PM Jacqui Nascimento RN Active documented in this encounter Progress Notes * Елена Cervantes CNA - 04/14/2019 10:54 AM CST Patient returned my call. I informed him of his follow up appointment with Dr. Engel on at 1020. I also got his correct number and changed it in the system. GRADER documented in this encounter Plan of Treatment Not on file documented as of this encounter Visit Diagnoses Not on filedocumented in this encounter Additional Health Concerns Infection Onset Date Last Indicated Resolved Time COVID-19 Rule Out 12/14/2019 12/14/2019 12/16/2019 9:01 PM CDT documented as of this encounter Care Teams Mold Chipper Relationship Specialty Start Date End Date None, Provider, PCP - General 04/04/19 12/21/19 Sarai Camargo APNP [address] [address] PCP - General Nurse Practitioner Family 12/22/1911/21 Cecily Robbins PA-C [address] [address] PCP - General PHYSICIAN LIBRARIAN SPECIAL LIBRARY 12/12/22 07/15/24 [place] [address] [place] [address] PCP - General INTERNAL MEDICINE 07/16/24 documented as of this encounter
--- OUTSIDE RECORDS SUMMARY | 2024-10-26 10:02 | XMS_ITS | Referral Summary ---
Author Organization [facility] [address] Address [address] [place] [address] Care Team Providers Care Resource Development Director Name Role Phone Missy Parra MD Primary Care Provider Social History Tobacco Use Types Packs/Day Years Used Date Smoking Tobacco: Never Assessed Personal Safety Answer Date Recorded Getting School Help Needed Not on file 07/06 Sex and Gender Information Value Date Recorded Sex Assigned at Not on file Legal Sex Male 8:34 PM GEAR CHANGER Gender Identity Male 08/02/2018 7:14 PM CDT Sexual Orientation Not on file Plan of Treatment Not on file Insurance Care Teams Resource Development Director Relationship Specialty Start Date End Date Missy Parra MD [address] [place] [address] PCP - General Family Medicine 07/16/18
--- OUTSIDE RECORDS SUMMARY | 2024-10-26 10:02 | XMS_ITS | Clinical Summary ---
Author Organization [facility] Address [address] [place] [address] Care Team Providers Care Biomedical Instrument Technician Name Role Phone Rob Carson MD Primary Care Provider [phone] Source Comments PLEASE NOTE, if this patient [...] use. Assessment & Plan (05/14/2024 10:29 AM PRINTING MACHINE MECHANIC): Patient advised to remain abstinent from substance use. Other hyperlipidemia 02/04/2024 Assessment & Plan (09/11/2024 10:22 AM CDT): Encouraged patient on dietary lifestyle and modification. Continue to monitor and child and family counselor. Assessment & Plan (05/14/2024 10:30 AM PRINTING MACHINE MECHANIC): Encouraged patient on dietary lifestyle and modification. Continue to monitor and child and family counselor. Prediabetes 01/31/2024 Assessment & Plan (09/11/2024 10:21 AM CDT): Encouraged patient on dietary lifestyle and modification. Continue to monitor and child and family counselor. Assessment & Plan (05/14/2024 10:29 AM PRINTING MACHINE MECHANIC): Encouraged patient on dietary lifestyle and modification. Continue to monitor and child and family counselor. Assessment & Plan (01/31/2024 11:00 AM CDT): Encouraged patient on dietary lifestyle and modification. Continue to monitor and child and family counselor. Obesity 01/31/2024 Assessment & Plan (09/11/2024 10:22 AM CDT): Encouraged patient on dietary lifestyle and modification. Continue to monitor and child and family counselor. Assessment & Plan (05/14/2024 10:30 AM PRINTING MACHINE MECHANIC): Encouraged patient on dietary lifestyle and modification. Continue to monitor and child and family counselor. Assessment & Plan (01/31/2024 11:01 AM CDT): Encouraged patient on dietary lifestyle and modification. Continue to monitor and child and family counselor. Gastroesophageal reflux disease without esophagi tis 10/02/2023 Assessment & Plan (09/11/2024 10:21 AM CDT): Stable, controlled. Continue present management. Assessment & Plan (05/14/2024 10:29 AM PRINTING MACHINE MECHANIC): Stable, controlled. Continue present management. Assessment & Plan (01/31/2024 11:00 AM CDT): Stable, controlled. Continue present management. Assessment & Plan (11/07/2023 9:28 AM CDT): Stable, controlled. Continue present management. Assessment & Plan (10/03/2023 9:41 AM CDT): Advised patient to avoid Tums due to interaction with BiVantosarvy. Start Pepcid for prn use. Tobacco use 10/02/2023 Assessment & Plan (09/11/2024 10:21 AM CDT): Patient now vaping. Encouraged cessation. Monitor for now. Assessment & Plan (05/14/2024 10:29 AM PRINTING MACHINE MECHANIC): Patient now vaping. Encouraged cessation. Monitor for [...] this time. Will continue to monitor and child and family counselor. Assessment & Plan (10/03/2023 9:41 AM CDT): Patient advised on importance of quitting smoking to avoid certain health conditions like COPD, cancer, and heart disease. Patient encouraged to consider options like Chantix or Zyban as well as nicotine replacement therapy like patches, gum, lozenges, or inhaler. Patient not interested in quitting at this time. Will continue to monitor and child and family counselor. Need for vaccination 10/02/2023 Assessment & Plan (09/11/2024 10:22 AM CDT): MMR #1 today. Advised patient to get COVID-19 vaccine from outside retail pharmacy. Assessment & Plan (05/14/2024 10:30 AM PRINTING MACHINE MECHANIC): Encouraged vaccination with COVID-19 vaccine at outside retail pharmacy. Assessment & Plan (01/31/2024 11:00 AM CDT): Flushot today. Assessment & Plan (11/07/2023 9:29 AM CDT): Tdap today. Assessment & Plan (10/03/2023 9:41 AM CDT): PCV-20 today. HIV infection ([facility]) 09/04/2023 Assessment & Plan (09/11/2024 10:20 AM CDT): HIV under control. Continue current management. Encouraged 100% compliance. No need for opportunistic infection prophylaxis based on last CD4 count. Safe sex measures encouraged. Immunizations: MMR #1 today. Encouraged patient to get COVID-19 vaccine from outside retail pharmacy. Assessment & Plan (05/14/2024 10:29 AM PRINTING MACHINE MECHANIC): HIV under control. Continue current management. Encouraged [...] 100% compliance. Request initial labs drawn at [facility] in [place], [place]. Check f/u labs today. Wait for [...] management. Assessment & Plan (05/14/2024 10:29 AM PRINTING MACHINE MECHANIC): Resolved. Monitor for now. Assessment & Plan (01/31/2024 11:00 AM CDT): Resolved. Monitor for now. Depression screening:DEPRESSION FU PROVIDED ([facility]): Counseling / education in visit Assessment [...] Description 10/07/2024 9:30 AM CDT Office Visit [address] [phone] Noelle Buchanan [facility] 09/17/2024 10:30 AM CDT Office Visit [address] [phone] Billie Box 09/15/2024 Results Follow-Up [address] [address] Rob Carson MD 09/11/2024 10:00 AM CDT Office Visit [address] [phone] Rob Carson MD 09/11/2024 Interim Notes [address] [address] Camille Leone 09/03/2024 Interim Notes [address] [address] Royr Wise DMD 07/27/2024 10:30 AM CDT Office Visit [address] [address] Rory Wise DMD from Last 3 Months [...] Description 11/25/2024 10:00 AM CDT Office Visit [address] [phone] Noelle Buchanan, RDH [facility] [place] [address] 12/11/2024 10:30 AM CDT Office Visit [address] [phone] Rob Carson MD [address] [place] [id number] Health Maintenance Due Date Last Done Comments Imm-Meningococcal (1 - Risk 2-dose series) 1985 Medicare Annual Wellness Visit 2001 Imm-Zoster, Recombinant (1 of 2) 2002 [id number] ( season) 2023 Dental Periodontal Maintenance 09/11/2024 [...] AM CDT HIV infection, unspecified symptom status ([facility]) Prediabetes Obesity, unspecified class, unspecified obesity type, unspecified whether serious comorbidity present High risk medication use RPR (DIAGNOSIS) WITH REFLEX TO TITER AND CONFIRMATORY TESTING Routine 09/11/2024 10:34 AM CDT HIV infection, unspecified symptom status ([facility]) High risk medication use COMPREHENSIVE METABOLIC PANEL Routine 09/11/2024 10:34 AM CDT HIV infection, unspecified symptom status ([facility]) High risk medication use BLOOD COUNT COMPLETE AUTO&AUTO DIFRNTL WBC Routine 09/11/2024 10:34 AM CDT HIV infection, unspecified symptom status ([facility]) High risk medication use LYMPHOCYTE SUBSET PANEL 5 Routine 09/11/2024 10:34 AM CDT HIV infection, unspecified symptom status ([facility]) High risk medication use HIV-1 RNA QUANT REAL TIME PCR, PLASMA Routine 09/11/2024 10:34 AM CDT HIV infection, unspecified symptom status ([facility]) High risk medication use URINALYSIS, MACROSCOPIC Routine 09/11/2024 10:34 AM CDT HIV infection, unspecified symptom status ([facility]) High risk medication use MEDICAL HISTORY UPDATE Routine 07/27/2024 10:30 AM CDT Partial edentulism, unspecified edentulism class ORAL HYGIENE INSTRUCTIONS Routine 07/27/2024 10:30 AM CDT Partial edentulism, unspecified edentulism class IMPRESSIONS Routine 07/27/2024 10:30 AM CDT Partial edentulism, unspecified edentulism class LR COMP PERIODONTAL EVALUATION - NEW/EST PATIENT Routine 06/12/2024 11:30 AM PRINTING MACHINE MECHANIC Stage 3 grade C generalized periodontitis per AAP/EFP 2017 classification LR PERIODONTAL MAINTENANCE Routine 06/12/2024 11:30 AM PRINTING MACHINE MECHANIC Stage 3 grade C generalized periodontitis per AAP/EFP 2017 classification LIPID PANEL Routine 01/31/2024 10:23 AM CDT HIV infection, unspecified symptom status ([facility]) Prediabetes Obesity, unspecified class, unspecified obesity type, unspecified whether serious comorbidity present High risk medication use INTRAORAL - COMP SERIES OF RADIOGRAPHIC IMAGES Routine 11/27/2023 10:30 AM CDT Retained tooth root Fractured dental temple with loss of material Fractured dental temple without loss of material Caries Encounter for dental examination and cleaning with abnormal findings COMP ORAL EVALUATION - NEW/ESTABLISHED PATIENT Routine 11/27/2023 10:30 AM CDT Caries Encounter for dental examination and cleaning with abnormal findings HEPATITIS B SURFACE AG, EIA WITH REFLEX CONFIRM Routine 10/02/2023 3:10 PM CDT HIV infection, unspecified symptom status ([facility]) High risk medication use HEPATITIS C AB W/RFLX HCV RNA, QT, RT PCR Routine 10/02/2023 3:10 PM CDT HIV infection, unspecified symptom status ([facility]) High risk medication use from Last 3 Months or Most Recently Relevant to Health Maintenance Results * RPR (DIAGNOSIS) WITH REFLEX TO TITER AND CONFIRMATORY TESTING Routine (09/11/2024 10:34 AM CDT) Pathologist [facility] RPR (DX) W/REFL TITER AND CONFIRMATORY TESTING NON-REACT PETE NON-REACT PETE [facility] [place] Comment: No laboratory evidence of syphilis. If recent exposure is suspected, submit a new sample in 2-4 weeks. Serum Blood / Unknown 09/11/2024 1 0:34 AM CDT 09/12/2024 5:52 AM CDT Rob Carson MD LAB - BLOOD DRAW Edited Resu lt - Final [facility] [place] [address] [place] [address] [place] [address] [facility] [place] [address] [place] [address] * LYMPHOCYTE SUBSET PANEL 5 Routine (09/11/2024 10:34 AM CDT) Pathologist [facility] % CD4 (HELPER CELLS) 37 30 - [...] lt - Final [facility] KATHERIN NARANJO [address] [facility] [place] [address] [facility] [place] [address] [place] [address] * (ABNORMAL) HIV-1 RNA QUANT REAL TIME [...] Edited Resu lt - Final [facility] [place] [address] [place] [address], [facility] [address] [place] [address] * (ABNORMAL) URINALYSIS, MACROSCOPIC Urine Routine (09/11/2024 [...] AMBULATORY Edited Result - Final [facility] [place] [address] [place] [address], [facility] [place] [address] [place] [address] * BLOOD COUNT COMPLETE AUTO&AUTO DIFRNTL WBC Routine (09/11/2024 10:34 AM CDT) Pathologist [facility] WHITE BLOOD CELL COUNT 6.5 3.8 - [...] Edited Resu lt - Final [facility] [place] [address] [place] [address], [facility] [facility] [place] [address] [facility] [address] * (ABNORMAL) HEMOGLOBIN GLYCOSYLATED A1C Routine (09/11/2024 [...] BLOOD DRAW Edited Resu lt - Final [facility] [place] [address] [place] [address], [facility] [employer] [address] [place] [address] * (ABNORMAL) COMPREHENSIVE METABOLIC PANEL Routine (09/11/2024 10:34 AM CDT) [facility] GLUCOSE 100(H) 65 - 99 mg/dL [facility] [...] Edited Resu lt - Final [facility] [place] [address] [place] [address], [facility] [address] [place] [address] * (ABNORMAL) LIPID PANEL (01/31/2024 10:23 AM CDT) Pathologist [facility] CHOLESTEROL, TOTAL 210(H) <200 mg/dL [facility] [...] Norris RODGERS et al. PEDRO PABLO. 2013;310(19): 4450-2344 (http://education.KidsCash.careersmore/faq/YYM703) CHOL/HDLC RATIO 5.5(H) <5.0 (calc) [facility] [...] Resu lt - Final Performing Organization Address City/[facility]/ZIP Co de Phone Number [facility] [place] [address] [address] [facility] ServicesGE[place] [address], [employer] [place] [address] * HEPATITIS C AB W/RFLX HCV RNA, QT, RT PCR (10/02/2023 3:10 PM CDT) [facility] HEPATITIS C ANTIBODY NON-REACT PETE NON-REACT PETE [employer] Comment: HCV antibody was non-reactive. There is no laboratory evidence of HCV infection. In most cases, no further action is required. However, if recent HCV exposure is suspected, a test for HCV RNA (test code 91854) is suggested. For additional information please refer to http://education.[facility]/faq/ROR01x9 (This link is being provided for informational/ educational purposes only.) Blood Blood / Unknown 10/02/2023 3 :10 PM CDT 10/03/2023 3:03 AM CDT Rob Carson MD LAB - BLOOD DRAW Edited Resu lt - Final [facility] [place] [address] [place] [address], [employer] [address] [place] [address] * HEPATITIS B SURFACE AG, EIA WITH REFLEX CONFIRM (10/02/2023 3:10 PM CDT) HEPATITIS B SURFACE ANTIGEN NON-REACTIVE NON-REACT PETE [facility] [place] COMMENT [facility] CONFIRMATION CANCELED [facility] Comment:Result canceled by sahil snow ancillary. Blood Blood / Unknown 10/02/2023 3 :10 PM CDT 10/03/2023 3:03 AM CDT Narrative [facility] [place] - 10/04/2023 3:56 PM CDT For additional information, please refer to http://education.[facility]/faq/BYY243 (This link is being provided for informational/ educational purposes only.) Rob Carson MD LAB - BLOOD DRAW Edited Resu - Final [facility] [place] [address] [place] [address], [facility] [address] [place] [address] from Last 3 Months or Most Recently Relevant to Health Maintenance Insurance [facility] Member Subscriber Plan / Payer (Ef fective 2024-Present) Name:Nickolas Arndt Relation to Subscriber:Self Name:Nickolas Arndt Payer ID:[id number] Group ID:Not on file Type:Medicare Address: [address] [place] [address] [employer] Care Teams Biomedical Instrument Technician Relationship Specialty Start Date End Date Rob Carson MD [address] [place] [address] PCP - General Infectious Diseases 10/02/23
--- OUTSIDE RECORDS SUMMARY | 2024-10-26 10:02 | XMS_ITS | Clinical Summary ---
Author Organization [facility] Address [address] [facility] [place] [address] Care Team Providers Care Amusement Equipment Operator Name Role Phone Unavailable Primary Care Provider Unavailabl e Source Comments [facility],non-owned Affiliates and Associated Physician Practices is amultiple site organization consisting of ambulatory clinics and hospital sitesin [place], [place], [place] and [place]. This disclosure is being madepursuant to the Care Everywhere program and may not contain all information available regarding this patient. Last updated 18.[facility] [employer] Social History Tobacco Use Types Packs/Day Years [...] age to complete this topic Insurance MEDICAID [facility]
--- OUTSIDE RECORDS SUMMARY | 2024-10-26 10:02 | XMS_ITS | Clinical Summary ---
Author Organization [facility] Address [address] [place] [address] Care Team Providers Care Medical Scientist Name Role Phone Zoila Martin MD Primary Care Provider [phone] Allergies No known active allergies Medications acetaminophen 325 MG tablet Take by mouth every 6 (six) hours as needed for Fever. Active meloxicam 7.5 MG tabletIndication s:Chronic neck pain Take 1 tablet (7.5 mg total) by mouth daily. 30 tablet 12/21/2019 Active Active Problems Problem Noted Date Diagnosed Date Cellulitis 04/07/2019 Immunizations Immunization Administration Dates Next Due Afluria 36 MONTHS+ (Prefilled Syringe IIV4) 03/23 Influenza Adult (Generic) 04/12/2019 Family History Medical History Relation Comments Asperger's syndrome Brother Diabetes Maternal Grandmother Heart Disease Maternal Grandmother Relation Status Comments Brother Alive Father Alive Maternal Grandfather Alive Maternal Grandmother Mother Alive Paternal Grandfather Paternal Grandmother Social History Tobacco Use Types Packs/Day Years Used Date Smoking Tobacco: Every Day Cigarettes Pipe Smokeless Tobacco: Never Tobacco Cessation:Counseling Given: Yes Alcohol Use Standard Drinks/Week Comments Yes 0 (1 standard drink = 0.6 oz pur e alcohol) rarely Sex and Gender Information Value Date Recorded Sex Assigned at Not on file Legal Sex Male 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 Gender Identity Not on file Sexual Orientation Not on file Last Filed Vital Signs Vital Sign Reading Time Taken Comments Blood Pressure 112/68 12/21/2019 4:20 PM CDT Pulse 89 12/21/2019 4:20 PM CDT Temperature 36.1 C (97 F) 12/21/2019 4:20 PM CDT Respiratory Rate 18 12/21/2019 4:20 PM CDT Oxygen Saturation 98% 12/21/2019 4:20 PM CDT Inhaled Oxygen Concentration - - Weight 120.3 kg (265 lb 3.2 oz) 12/21/2019 4:20 PM CDT Height 195.6 cm (6' 5) 12/21/2019 4:20 PM CDT Body Mass Index 31.45 12/21/2019 4:20 PM CDT Plan of Treatment Health Maintenance Due Date Last Done Comments Annual Physical 1986 Hepatitis C 2001 DTaP, Tdap and Td Vaccines ( 1 - Tdap) 2002 Hepatitis B Vaccines (1 of 3 - 19+ 3-dose series) 2002 Pneumococcal Vaccine: Pediat rics (0 to 5 Years) and At-Risk Patients (6 to 49 Years) (1 of 2 - PCV) 2002 COVID-19 Vaccine (2023-2 5 season) 2023 HPV Vaccines Aged Out No longer eligi ble based on patient's age to complete this topic Meningococcal B Vaccine Aged Out No l onger eligible based on patient's age to complete this topic Meningococcal Vaccine Aged Out No joanne miriam eligible based on patient's age to complete this topic RSV Immunizations Under 20 Months Aged Out No longer eligible based on patient's age to complete this topic Advance Directives * Full Code (Latest Code Status on File) Date Activated Date Inactivated Comments 04/07/2019 2:51 AM 04/12/2019 6:35 PM Care Teams Medical Scientist Relationship Specialty [place] [address] [facility] [address] [place] [address] PCP - General INTERNAL MEDICINE 07/16/24
--- NOTE | 2024-10-26 10:06 | ED_ITS ---
HPI - Chest Pain General Chief Complaint: Shortness of Breath/Dyspnea Stated Complaint: heartburn, sob Time Seen by Provider: 10/26/24 09:08 Source: patient Mode of arrival: ambulatory Limitations: no limitations History of Present Illness HPI narrative: This is a 39 year old male that presents to the ER for epigastric pain, worsening over the last week. Reports history of reflux for which he takes Pepcid. This has not been helping. He has also had right sided chest pain and is feeling short of breath. Denies fever, cough, vomiting. Related Data Allergies Allergy/AdvReac Type Severity Reaction Status Date / Time No Known Allergies Allergy Verified 03/25/21 04:03 Review of Systems 2 Review of Systems: All systems reviewed & are unremarkable except as noted in HPI and below PMFSH Past Medical History Medical History (Updated 10/26/24 @ 13:29 by Tania Mcqueen PA-C) HIV (human immunodeficiency virus infection) Kidney stone Family History Family History Mother Family history of type 2 diabetes mellitus Hypertension Grandparent Diabetes mellitus Hypertension Family history of cardiovascular disease Social History Social History (Updated 10/26/24 @ 10:17 by Tania Mcqueen PA-C) Smoking packs per day: 0.5 Smoking cigarettes per day: 10.0 Smoking status: Current every day smoker Tobacco type: e-cigarettes/vaping Alcohol intake: current Gender identity (if verbalized by the patient): Male Exam 2 Narrative: GENERAL: Well-appearing, well-nourished, and in no acute distress. HEAD: Normocephalic, atraumatic. EYES: EOMI. ENT: Nares clear, no rhinorrhea or epistaxis. Mucous membranes moist. Oropharynx without tonsillar hypertrophy exudate or other lesions. NECK: Supple. No adenopathy or masses. No JVD CHEST: Clear to auscultation. No respiratory distress. No wheezes rales or rhonchi HEART: Regular rate and rhythm. No murmur heard. Normal peripheral pulses. ABDOMEN: Soft, nontender, nondistended, normal active bowel sounds. EXTREMITIES: Normal range of motion. No edema. SKIN: Warm, dry, no rash. NEURO: No focal deficits. Alert and oriented x3. PSYCH: Normal mood and affect Course Course Emergency Course: Patient updated on his workup. Resting comfortably. Agrees with plan of care Vital Signs Vital signs: Vital Signs Temperature 98 F 10/26/24 08:58 Pulse Rate 65 10/26/24 08:58 Respiratory Rate 20 10/26/24 08:58 Blood Pressure 170/106 H 10/26/24 08:58 Pulse Oximetry 100 10/26/24 08:58 Temperature 98 F 10/26/24 08:58 Pulse Rate 58 L 10/26/24 12:40 Respiratory Rate 12 10/26/24 12:40 Blood Pressure 127/87 10/26/24 11:10 Pulse Oximetry 98 10/26/24 12:40 Oxygen Delivery Room Air 10/26/24 09:11 MDM - Chest Pain MDM Narrative Medical decision making narrative: Patient presents the emergency department for worsening reflux. Ongoing over the last week. Additionally endorsing some right-sided chest discomfort. He is afebrile and nontoxic appearing. Hypertensive upon arrival, this normalized without intervention. CBC metabolic panel without concerning findings. EKG without acute ST changes, his baseline and 3 hour troponin are negative. CTA chest PE with abdomen and pelvis obtained for further evaluation. No acute findings. Shows a patent urachus with a calcification. Spoke with Dr. Ruth about this. Patient may follow up outpatient for this, he recommends Dr. Onofre. Patient resting comfortably, updated on his workup. His heart score is 1. Will add on Protonix to his reflux regimen. He was instructed to have close follow-up with his PCP. He was given warnings to return to the ER Differential Diagnosis Differential diagnosis: Likely stable angina, atypical chest pain, costochondritis, biliary colic and other (PE, pneumonia, GERD, gastritis, esophagitis) Lab Data Attestation: I reviewed the patient's lab results. 10/26/24 09:15 10/26/24 09:15 Labs: Lab Results 10/26/24 10/26/24 Range/Units 09:15 12:06 WBC 6.1 (4.5-10.0) K/mm3 RBC 4.47 L (4.6-6.20) M/mm3 Hgb 14.5 (14.0-18.0) g/dL Hct 41.9 L (42.0-52.0) % MCV 93.7 (80-100) fl MCH 32.4 (26-34) pg MCHC 34.6 (32-36) g/dl RDW 12.4 (11.5-14.5) % Plt Count 180 (150-375) k/mm3 MPV 10.4 (7.4-10.4) fl Immature Gran % (Auto) 0.2 (0-0.5) % Neut % (Auto) 41.4 L (45.5-73.1) % Lymph % (Auto) 46.0 H (18.3-44.2) % [place] % (Auto) 9.6 H (2.6-8.5) % Eos % (Auto) 2.3 (0-4.4) % Baso % (Auto) 0.5 (0.2-1.2) % Lymph # (Auto) 2.82 (0.9-3.2) K/mm3 [place] # (Auto) 0.6 (0.1-0.6) K/mm3 Eos # (Auto) 0.1 (0-0.3) K/mm3 Baso # (Auto) 0.0 (0.0-0.1) K/mm3 Abs Immat Gran (auto) 0.01 (0.00-0.031) K/mm3 Absolute Neuts (auto) 2.5 (1.3-6.7) K/mm3 Absolute Nucleated RBC 0.000 (0.0-0.012) K/mm3 Nucleated RBC % 0.0 (0.0-0.2) % PT 13.1 (11.1-14.7) Seconds INR 1.0 APTT 23.3 (22.3-36.8) Seconds D-Dimer < 0.27 (<0.48) ug/mL Sodium 140 (137-145) mmol/L Potassium 4.3 (3.4-5.0) mmol/L Chloride 108 H (98-107) mmol/L Carbon Dioxide 23 (22-30) mmol/L Anion Gap 9 (4-12) mmol/L BUN 16 (9-20) mg/dL Creatinine 1.00 (0.7-1.3) mg/dL Estim Creat Clear Calc 133 ml/min Estimated GFR > 60 (59 - ) Glucose 127 H (65-110) mg/dL Calcium 9.3 (8.4-10.2) mg/dL Total Bilirubin 0.3 (0.2-1.3) mg/dL AST 31 (17-59) U/L ALT 47 (6-50) U/L Alkaline Phosphatase 63 (38-126) U/L Troponin I 0.013 < 0.012 (0.000-0.034) ng/mL Total Protein 7.9 (6.3-8.2) g/dL Albumin 4.0 (3.5-5.1) g/dL Lipase 52 (23-300) U/L Imaging Data Radiologist's impression: ITS Impressions Chest/Abdomen/Pelvis CTA 10/26/24 10:50 IMPRESSION: No obstructive uropathy. Stable simple cyst within the left kidney. Redemonstration of a patent urachus with a 23 mm ureteral stone (increased from 20 mm on previous examination in 2019) for which urologic consultation is recommended. Chest X-Ray 10/26/24 10:56 IMPRESSION: No acute process. ECG Data EKG #1: ECG completion date: 10/26/24 EKG Interpretation: normal rate, sinus rhythm, no ST changes and normal QT Critical Care Time Critical Care Time Critical Care Time: No Discharge Plan Discharge Clinical Impression: Acute epigastric pain, GERD (gastroesophageal reflux disease), Patent urachus Patient Disposition: Home Condition: Stable Instructions: Chest Pain (ED), Diet for Stomach Ulcers and Gastritis (ED), GERD (Gastroesophageal Reflux Disease) (ED), Epigastric Pain (ED) Additional Instructions: Return to the ER if you experience fever, chest pain, shortness of breath, abdominal pain with nausea and vomiting, you are unable to keep down liquids or solids, or any other symptoms that are concerning to you I am adding on Pantoprazole to your pepcid to help with your reflux Follow up with your primary care doctor. Dr Hayes is our dumpcart driver franchise field consultant today if needed. 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 Follow up with urology for this (Dr. Onofre) Patient Language: Austrian Prescriptions: New pantoprazole 40 mg tablet,delayed release (DR/EC) 40 mg PO HS 28 Days Qty: 28 0RF No Action ibuprofen 800 mg tablet 800 mg PO TID PRN (Reason: pain) Qty: 30 0RF ciprofloxacin HCl 500 mg tablet 500 mg PO Q12H 10 Days Qty: 20 0RF cephalexin 500 mg capsule 500 mg PO QID 5 Days Qty: 20 0RF ketorolac 10 mg tablet 10 mg PO Q6H PRN (Reason: pain) Qty: 14 0RF tamsulosin [Flomax] 0.4 mg capsule 0.4 mg PO DAILY Qty: 7 0RF hydrocodone-acetaminophen [[place]] 5-325 mg tablet 1 tablet PO Q6H PRN (Reason: pain) Qty: 10 0RF ondansetron HCl [Zofran] 4 mg tablet 4 mg PO Q6H PRN (Reason: nausea and vomiting) Qty: 10 0RF erythromycin 5 mg/gram (0.5 %) ointment 0.5 inch RIGHT EYE QID Qty: 3.5 0RF hydrocodone-acetaminophen 5-325 mg tablet 1 tablet PO Q6H PRN (Reason: pain) Qty: 10 0RF clindamycin HCl 150 mg capsule 450 mg PO Q6H 7 Days Qty: 84 0RF Follow-up/Referrals: Brayden Onofre MD [Physician] - Luis Hayes MD [Physician] - UNKNOWN,DOCTOR [Primary Care Provider] - Quality HEART score for chest pain patients History: slightly suspicious ECG: normal Age: < or = to 45 years Risk factors: 1 or 2 risk factors Troponin: < or = to 1x normal limit Heart score: 1
[2024-10-26] MEDS: PANTOPRAZOLE SODIUM IV 40 MG VIAL IV PUSH (10:12)
[2024-10-26 11:10] VITALS: BP 127/87; PULSE 60; RESP 12; O2SAT 97
--- NOTE | 2024-10-26 11:59 | ECG_ITS ---
Test Date: 2024-10-26 12:10:08 Measurements Intervals [place] Rate: 57 P: 37 [place]: 191 QRS: 5 QRSD: 100 T: 15 QT: 412 QTc: 402 Interpretive Statements SINUS BRADYCARDIA Compared to ECG 10/26/2024 09:03:55 Sinus rhythm no longer present Electronically Signed On 10-26-2024 22:15:35 CDT by Jory Hannon M.D.
[2024-10-26 12:32] LABS: Troponin I < 0.012 ng/mL (0.000-0.034)
[2024-10-26 12:40] VITALS: PULSE 58; RESP 12; O2SAT 98
[2024-10-26 13:43] VITALS: BP 132/86; PULSE 70; RESP 16; O2SAT 98
== END 2024-10-26 13:43 | disposition home or self-care (01) ==
PROVIDERS: Emergency Provider Physician Assistant
DX: R10.13 Epigastric pain (principal); K21.9 Gastro-esophageal reflux disease without esophagitis; Q64.4 Malformation of urachus; N20.1 Calculus of ureter; N28.1 Cyst of kidney, acquired; Z21 Asymptomatic human immunodeficiency virus [HIV] infection status; F17.290 Nicotine dependence, other tobacco product, uncomplicated
CPT/HCPCS: 36415; 71046; 71275; 74177; 80053; 83690; 84484; 85025; 85380; 85610; 85730; 93005; 96374; 99284; A9270; J2470; Q9967

== ENCOUNTER 2024-11-25 08:30 | Outpatient (RCR) | payer OTHER, SELFPAY ==
--- NOTE | 2024-10-07 15:51 | OPREHPOC ---
Outpatient Therapy Plan of Care This is a Multidisciplinary Plan of Care that may contain components documented by all disciplines (PT, OT, and ST.) PT Problem 1 PT Problem #1 Knowledge Deficit PT Goal 1 Goal / Goal Update Patient to demonstrate independence with HEP for improved self-reliance of symptom management. Target Visit 6 PT Problem 2 PT Problem #2 Pain PT Goal 1 Goal / Goal Update 1. Patient to report an improvement in radiating symptoms between his shoulder blades by 50% to increase ability to perform ADLs. 2. Patient to report an improvement in MOSLEY frequency by 50% to increase ability to perform ADLs. Target Visit 12 PT Problem 3 PT Problem #3 Impaired Range of Motion PT Goal 1 Goal / Goal Update 1. Patient to demonstrate an increase of bilateral cervical rotation AROM to >=60 degrees to improve safety with driving. 2. Patient to demonstrate an increase of cervical ext AROM with minimal c/o pain to improve the ability to drink from a cup. Target Visit 12 PT Problem 4 PT Problem #4 Impaired Strength PT Goal 1 Goal / Goal Update Patient to hold deep neck flexor testing position >=15 seconds for improved endurance and neck stability. Target Visit 12
--- NOTE | 2024-10-07 15:51 | PTOPEVAL1 ---
Assessment and note entered by Harriett Calvin, PT Evaluation Information Assessment Status Evaluation ICD-10 Condition Codes (PT) Radiculopathy, cervical M54.13 Onset >5 years Subjective Information Pt reports having increased neck pain and headaches for over 5 years. He went to pain management a long time ago, pain medication helped a little bit. had epidural injections that seemed to give him temporary relief. He is able to do all work that is asked of him but depending on the things he does it will intensify his pain and headache. He reports pain worse with reading, reaching overhead, laying on his back under a car, and looking with driving. He is only able to sleep for 2-3 hours at most because of a dull throb and pressure into the back of his head. He reports a constant headache that never really seems to go away. Reports intermittent N/T in Lv hands that goes away with position changes. Reported Pain Level Pain Score 2: Self Report Additional Pain Score Comments reports pain can shoot between his shoulder blades - worse with tipping R ear to R shoulder or lifting something heavy, notes increased pressure in his skull and when it is that way he gets light sensitivity Assessment PT Clinical Summary Pt is a 39 year old male who presents to physical therapy with signs and symptoms consistent with cervical radiculopathy. Pt demonstrates deep neck flexor weakness, neck pain, frequent and severe MOSLEY 's, decreased cervical mobility, abnormal muscle tension and tenderness upon palpation that limit their ability to perform ADLs. Pt will benefit from skilled physical therapy to address the above listed deficits and return to PLOF. HEP instructed and written handout provided, EX tolerated well with no adverse effects to note post-session. Pt was educated on importance of adherence to HEP. Pt was also educated on anatomy, prognosis, home modalities, and PT POC. Plan of Care Interventions Electrical Stimulation,Gait Training,Hot Pack/Cold Pack,Manual Therapy,Mechanical Traction,Neuro Re- education,Therapeutic Activities,Therapeutic Exercise PT Services Indicated Yes Treatment Frequency and 2x/wk for 12 visits Duration These treatments will address the objective and functional deficits as defined above. The patient will be advanced safely and appropriately in order for the patient to progress towards his/her prior level of function. Additional exercises will be introduced and as well as a comprehensive home exercise program upon discharge, if needed, ?to ensure carryover of functional gains achieved in the clinic. This treatment plan has been reviewed and agreement upon by the patient.
--- NOTE | 2024-11-25 08:52 | PTOPDC ---
Assessment and note entered by Harriett Calvin, PT Evaluation Information Assessment Status Discharge ICD-10 Condition Codes (PT) Radiculopathy, cervical M54.13 Onset >5 years Subjective Information Pt reports his headaches are no longer constant, improved by at least 50% in intensity and frequency. He denies N/T in Lv hands since his first couple of session. He is also reporting decreased pain down the medial shoulder blade area as well in the last few weeks. Overall since first starting therapy the pt reports feeling 80% improved. He doesn't think is mobility is all the way there yet but at least it doesn't hurt. Reported Pain Level Pain Score 0: Self Report Assessment PT Clinical Summary Patient's condition has improved overall as evidenced by advancements in symptoms, mobility, strength, and overall functional use of the extremity. Pt has met all therapy goals and is pleased with progress made in PT. Patient to DC from PT this date and continue with updated HEP as instructed. Pt to contact PT or PCP if questions or concerns arise. Plan of Care PT Services Indicated Yes
== END 2024-11-27 12:12 | disposition home or self-care (01) ==
LOC: ANHPT 08:30
DX: M54.2 Cervicalgia (principal); M54.13 Radiculopathy, cervicothoracic region
CPT/HCPCS: 97014; 97110; 97140; 97161; 97530; G0283